=== PATIENT | female | born 1985 | race Caucasian/White ===

== ENCOUNTER 2017-02-12 10:35 | Day surgery (SDC) | payer MEDICAID, SELFPAY ==
[2017-02-12 11:41] VITALS: BMI 44.7
--- NOTE | 2017-02-12 13:52 | PRG ---
DATE OF SERVICE: 02/12/2017 PRIMARY OPERATIONS TECH: Clinic. CHIEF COMPLAINT: Nonreassuring surveillance at the outside facility. HISTORY OF PRESENT ILLNESS: The patient is a 32-year-old female with with an intrauterine pre gnancy at 37 weeks and 3 days who was sent to Labor and Delivery ER for monitoring and evaluation af ter having a nonreactive NST and nonreassuring BPP. The patient's medical history is significant fo r oligohydramnios and LGA baby. Patient has history of pregestational diabetes, but is diet control led, most recent A1c was 5.6. The patient denies any vaginal bleeding, leakage of fluid, uterine co ntractions, any recent illness, fever, fall. 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 She has a positive PPD with nega tive chest x-ray and no symptoms. ALLERGIES: PENICILLIN. MEDICATIONS: Aspirin. OBSTETRIC LABORATORY DATA: She is GBS positive. RPR nonreactive, HIV nonreactive, hepatitis B [place] antigen nonreactive. She is rubella immune, blood type unavailable. OBSTETRIC HISTORY: This is measuring at the 99th percentile, most recent GALILEA 6.6. REVIEW OF SYSTEMS: Per HPI. PHYSICAL EXAMINATION: VITAL SIGNS: Blood pressure 122/76, heart rate of 73, satting 97% on room air, respiration rate 20, temperature 98.2. GENERAL: She appears to be in no acute distress. She is alert and oriented, and cooperative and pl easant to interact with. HEENT: Normocephalic, atraumatic. LUNGS: Clear to auscultation bilaterally. HEART: Regular rate and rhythm. ABDOMEN: Soft, cervical exam is 1, 20 and -4. heart tracing performed for decreased nonreactive NST and nonreassuring BPP at outside facilit y. heart tracing at baseline in the 140s with moderate long-term variability, positive 15 x 1 5 accelerations, no decelerations. She has irritability on the tocometer for contractions. BPP was performed and was 8/8 with an GALILEA of 10.3. ASSESSMENT AND PLAN: The patient is a 32-year-old G2, P1 female with an intrauterine at 3 7 weeks and 0 days, pregestational diabetes, diet controlled. She has a transient history of decrea sed amniotic fluid index, but is within normal limits. Her BPP here is reassuring at 8 out of 8 and has a reactive non-stress test. Reassurance has been given to the patient. She is GBS positive an d is scheduled to follow up with her primary OB next Thursday.
--- NOTE | 2017-02-12 15:44 | ULT ---
BIOPHYSICAL PROFILE 02/12/17 HISTORY: Nonreassuring biophysical profile at outside facility. Oligohydramnios. FINDINGS: there is a single intrauterine gestation in cephalic presentation. Cardiac doppler demonstrates feta l heart tones with a heart rate of 144 beats per minute. The placenta is located anteriorly w ithout findings to suggest placenta previa. Subjectively, there does appear to be decrease in amniot ic fluid volume, but there is a normal amniotic fluid index of 10.3 cm. The cervix is difficult to evaluate due to shadowing in this region. Cervical length measures approx imately 3.9 cm based on transabdominal imaging. This study was not performed for evaluation of the f etal anatomical structures. However, there is a hypoechoic area seen within the placenta which may r epresent either a area of fibrin deposition or venous son. No flow is seen in this region. No retro placental hemorrhage is appreciated. A score of 2 is obtained each for tone, breathing, movements and amniotic fl uid volume. IMPRESSION: 1. Single intrauterine gestation in cephalic presentation with heart tones documented. 2. Amniotic fluid index is 10.3 cm. 3. A total biophysical profile score of 8 out 8 is obtained. POS: [facility]
== END 2017-02-12 13:08 | disposition home or self-care (01) ==
LOC: L&D/OP 10:35
PROVIDERS: ATTEND Obstetrics & Gynecology
DX: O41.03X0 Oligohydramnios, third trimester, not applicable or unspecified (principal); O24.410 Gestational diabetes mellitus in pregnancy, diet controlled; O99.820 Streptococcus B carrier state complicating pregnancy; Z88.0 Allergy status to penicillin; Z79.82 Long term (current) use of aspirin; Z79.899 Other long term (current) drug therapy; Z3A.37 37 weeks gestation of pregnancy
CPT/HCPCS: 59025; 76819

== ENCOUNTER 2017-02-24 18:14 | Day surgery (SDC) | payer OTHER ==
[2017-02-24 19:33] VITALS: BMI 44.7
[2017-02-25] MEDS ORDERED: FLU VACC QS2017-18 36 mo. & older 0.5 ML SYRINGE IM ONE (09:00)
== END 2017-02-24 21:05 | disposition home or self-care (01) ==
LOC: L&D/OP 18:14
PROVIDERS: ATTEND Obstetrics & Gynecology
DX: O36.8130 Decreased fetal movements, third trimester, not applicable or unspecified (principal); Z88.0 Allergy status to penicillin; Z79.82 Long term (current) use of aspirin; Z79.899 Other long term (current) drug therapy; Z3A.38 38 weeks gestation of pregnancy

== ENCOUNTER 2017-02-25 17:02 | Inpatient (IN) | payer MEDICAID, OTHER, SELFPAY ==
[2017-02-25 21:24] VITALS: BMI 44.7
[2017-02-25] MEDS: Lactated Ringer's 1,000 ML IV SCH (22:00)
[2017-02-25] MEDS ORDERED: Lidocaine 1% (PF) 30 ML VIAL SC PRN (22:17)
[2017-02-25] MEDS ORDERED: Ondansetron HCl/PF 4 MG/2 ML Vial IVP PRN (22:17)
[2017-02-25] MEDS ORDERED: Promethazine HCl 25 MG/ML VIAL IM PRN (22:17)
[2017-02-25] MEDS ORDERED: Acetaminophen 500 MG TAB PO PRN (22:17)
[2017-02-25 22:30] LABS: Mean Platelet Volume 8.4 fL (7.4-10.4); Red Blood Cell (RBC) Count 4.35 mill/uL (4.20-5.40); White Blood Cell (WBC) Count 8.8 thou/uL (4.8-10.8)
[2017-02-25] MEDS ORDERED: Misoprostol 100 MCG TAB VAG SCH (23:30)
[2017-02-26] MEDS: Vancomycin HCl 1 GM in Premix Bag 1 BAG IVPB SCH ×2 (00:29→12:21)
[2017-02-26] MEDS ORDERED: Fentanyl 4 mcg/Marc 0.1% Cadd 100 ML ONE (03:22)
--- NOTE | 2017-02-26 03:22 | PDOC.LDPN ---
Labor & Delivery Progress Note - Subjective Subjective: painful contractions - Objective Vital signs reviewed and normal: yes General: breathing through contractions Uterine fundus: palpable contractions SVE: @ 0315 by Nurse Salome Dilation: 3 Effacement: 50% Station: -2 FHT: category 1 (difficult to keep the baby on the monitor well due to maternal habitus), variability present (mod) [place] contractions every: not picking up very well with toco. - Assessment (1) Current Visit: Yes Status: Acute QualifierTitle: Weeks of gestation: 39 weeks Qualified Code(s): Z3A.39 - 39 weeks gestation of Comment: @ 39.0 WGA here for IOL -Cytotec -LR @ 125 Currently having painful ctx that are difficult to pickling tank operator on the monitor due to body habitus. -Is requesting epidural GBS Positive, penicillin allergic -Vancomycin Pregestational Diabetes -Accuchecks q2h Plan: continue plan of care <Luana Lunsford - Last Filed: 02/26/17 03:54> -: Discussed with resident. PreE labs. <Hong Duong - Last Filed: 02/26/17 06:43>
[2017-02-26] MEDS: Lactated Ringer's 1,000 ML IV SCH ×3 (04:05→11:22)
[2017-02-26] MEDS ORDERED: Promethazine HCl 25 MG/ML VIAL IM PRN ×2 (04:06→12:23)
[2017-02-26] MEDS ORDERED: Ondansetron HCl/PF 4 MG/2 ML Vial IVP PRN ×3 (04:06→12:24)
[2017-02-26] MEDS ORDERED: Lactated Ringer's 500 ML IV PRN (04:06)
[2017-02-26] MEDS ORDERED: diphenhydrAMINE 50 MG/ML VIAL IVP PRN ×2 (04:06→12:23)
[2017-02-26] MEDS ORDERED: Acetaminophen 325 MG TAB PO PRN (04:06)
[2017-02-26] MEDS ORDERED: Eucerin (Mineral Oil/Petrolatum,White) 30 gm Jar TOP PRN ×2 (04:06→12:23)
[2017-02-26] MEDS ORDERED: ePHEDrine/0.9% NaCl/PF SYRINGE 50 mg/10 ml SLOW IVP PRN (04:06)
[2017-02-26] MEDS ORDERED: Naloxone HCl 0.4 mg/ml Vial IVP PRN ×4 (04:06→12:23)
[2017-02-26] MEDS ORDERED: Communication Order-Pharmacy FS SCH ×2 (04:15→12:30)
[2017-02-26] MEDS ORDERED: Fentanyl 4mcg/Marcaine 0.1% Cassette 100 ML EPIDURAL SCH (04:15)
[2017-02-26] MEDS ORDERED: Calcium Gluc 4.6 MEQ/10 ML (100 MG/ML) SLOW IVP PRN (05:23)
[2017-02-26] MEDS ORDERED: Magnesium Sulfate 20 GM/WATER 500 ML BAG IVPB SCH (05:30)
[2017-02-26 05:40] LABS: #Basophils 0.1 thou/uL (0.0-0.2); #Eosinphils 0.1 thou/uL (0.0-0.7); #Lymphocytes 3.4 thou/uL (1.20-3.40); #Monocytes 0.6 thou/uL (0.11-0.59); #Neutrophils 5.8 thou/uL (1.40-6.50); %Basophils 0.9 % (0.0-1.0); %Eosinophils 0.7 % (0.0-10.0); %Lymphocytes 34.3 % (21.0-51.0); %Monocytes 5.6 % (0.0-10.0); Hematocrit 41.3 % (36.0-47.0); Mean Platelet Volume 7.8 fL (7.4-10.4); Red Blood Cell (RBC) Count 4.69 mill/uL (4.20-5.40)
[2017-02-26 05:55] LABS: ALT (SGPT) 61 U/L (8-55); AST (SGOT) 34 U/L (5-34); Alkaline Phosphatase 131 U/L (40-150); Anion Gap 15 mmol/L (10-20); BUN (Urea Nitrogen) 15 mg/dL (7.0-18.7); Bilirubin, Total 0.3 mg/dL (0.2-1.2); Calc. Creatinine Clearance 215 mL/min (70-130); Calcium 9.3 mg/dL (7.8-10.44); Carbon Dioxide 18 mmol/L (22-29); Chloride 108 mmol/L (98-107); Estimated GFR-MDRD Greater than 90; Globulin 3.6 g/dL (2.4-3.5)
--- NOTE | 2017-02-26 05:56 | PDOC.LDHP ---
Labor and Delivery H&P Chief complaint: scheduled induction HPI: @ 39w0d by 9w0d sono here for scheduled induction. Macrosomic fetus by recent sono, EFW 3916 g. complicated by class F (24h 390 mg in 3L)pregestational DM, with all sugars well controlled. Started the on metformin but d/c'd after marked improvement in sugars. OB hx: ETVD c/b SGA (although 6 lb 8 oz), chorio PMH: DM, latent TB by quantgold with neg cxr, mild transaminitis that resolved but patient could not afford ultrasound PSH: negative FH: DM ALL: PCN, hives/urticaria Meds: PNV, ASA SH: denies BREONNA Current gestational age (weeks): 39 Due date: 03/05/17 Dating criteria: first trimester ultrasound Grav: 2 Para: 1 Current complications: pregestational diabetes Abnormal US findings: Yes (macrosomia) Current medications: pre-jojo vitamins, other (asa) Previous surgical history: none Allergies/Adverse Reactions: Allergies Allergy/AdvReac Type Severity Reaction Status Date / Time Penicillins Allergy Severe Hives Verified 02/12/17 11:41 Social history: none - Physical Exam Vital signs reviewed and normal: yes Abnormal vital signs: Intermittently elevated pressures General: NAD Heart: RRR Lungs: CTAB Abdomen: gravid Extremeties: trace edema FHT: category 1 - Vaginal Exam cm dilated: 8 Effacement: 100% Station: -1 - OB Labs Blood type: O RH: positive Antibody Screen: negative HIV: negative RPR: negative HEPSAg: negative GBS: positive Rubella: immune - Assessment L&D Assessment: elective induction at term - Plan Plan: labor augmentation if indicated -: A/P: @ 39w0d by 9w0d sono with Obesity Pregestational diabetes, well controlled, class F by chart with 24h 390 mg GBS+, clinda Sn but no lab concerning EES sensitivity Elevated blood pressures 1. Currently active labor, cat 2, mod robel, + accels, variables 2. Vanc 1g q12 in light of above 3. Elevated blood pressures. With correct cuff and positioning, between contractions, 142/70. No severe symptoms, clonus, or increased DTRs. Will send preE labs and escalate with Mg/antihypertensive with appropriate proctoring if a diagnosis of preeclampsia with severe features is made. 4. If persistent variables will consider IUPC with AI. Andrews Duong MD
--- NOTE | 2017-02-26 05:58 | PDOC.LDPN ---
Labor & Delivery Progress Note - Subjective Subjective: painful contractions, loss of fluid - Objective Abnormal vital signs: Multiple severe range BP's, however in between ctx they are 140s/80s General: breathing through contractions SVE: @ 0545 Dilation: 8-9 Effacement: 100% Station: -1 FHT: category 1, variable decelerations, variability present [place] contractions every: difficult to pickling drum operator on monitor Procedures: scalp electrode placement FSE placed: yes Resuscitative measures: maternal oxygen, maternal position change - Assessment (1) Current Visit: Yes Status: Acute QualifierTitle: Weeks of gestation: 39 weeks Qualified Code(s): Z3A.39 - 39 weeks gestation of Comment: @ 39.0 WGA here for IOL -Cytotec -LR @ 125 Currently having painful ctx that are difficult to pickling drum operator on the monitor due to body habitus. Received an epidural Started having severe range BP's that were during her ctx, but with BP's in 140' s/80's between ctx -Will draw pre-eclampsia labs, will monitor BP closely. Low threshold to start Mag Placed scalp electrode to monitor more closely. GBS Positive, penicillin allergic -Vancomycin Pregestational Diabetes -Accuchecks q2h Plan: continue plan of care <Luana Lunsford - Last Filed: 02/26/17 05:57> Attending Addendum - Attending Addendum I personally evaluated the patient and discussed the management with Dr. Lunsford. I agree with the History, Examination, Assessment and Plan documented above with any addition or exceptions noted below. ALT elevated, not 2x. BP's all non-severe with appropriate cuff. Continue current management. <Hong Duong - Last Filed: 02/26/17 06:44>
[2017-02-26] MEDS: Misoprostol 100 MCG TAB VAG SCH ×4 (06:27→19:16)
--- NOTE | 2017-02-26 07:24 | PDOC.LDPN ---
Labor & Delivery Progress Note - Subjective Subjective: painful contractions - Objective Vital signs reviewed and normal: yes Abnormal vital signs: few elevated BPs only with arm mvmt during ctx, bps 140s btw ctx General: breathing through contractions Uterine fundus: non tender SVE: 9/90/0 FHT: category 2, variable decelerations [place] contractions every: 2 min AROM: bloody fluid FSE placed: yes Resuscitative measures: maternal oxygen, maternal IV fluids, maternal position change - Assessment (1) Diabetes type 2, controlled Code(s): E11.9 - TYPE 2 DIABETES MELLITUS WITHOUT COMPLICATIONS Current Visit : Yes Status: Acute Qualifiers: Diabetes mellitus complication status: with kidney complications Diabetes mellitus complication detail: with nephropathy Diabetes mellitus retirement insulin use: without carpet sewer use Qualified Code(s): E11.21 - Type 2 diabetes mellitus with diabetic nephropathy (2) Proteinuria affecting Code(s): O12.10 - GESTATIONAL PROTEINURIA, UNSPECIFIED TRIMESTER Current Visit : Yes Status: Acute Qualifiers: Trimester: unspecified trimester Qualified Code(s): O12.10 - Gestational proteinuria, unspecified trimester (3) GBS carrier Code(s): Z22.330 - CARRIER OF GROUP B STREPTOCOCCUS Current Visit: Yes Status: Acute Plan: continue plan of care -: 1) Term IUP in labor- Currently having painful ctx-- anesthesia called to replace epidural at this time. 2) severe range BP's during ctx, but in between ctx 140-150/80s. pending replacement of epidural at will re-evaluate for Mag. Pr:Cr = 0.45, but normal CBC & CMP and pt with baseline proteinuria (pre-existing DM2) 3) GBS Positive-PCN allergic, s/p Vanc x 1- dosed q12hr. 4) Pregestational Diabetes- accuchecks 68-104, cont accuchecks q2h. last EFW 4030gm @ >97%ile- prepared for potential complications including shoulder dystocia.
[2017-02-26] MEDS ORDERED: Fentanyl 100 MCG/2 ML VIAL ONE (07:31)
--- NOTE | 2017-02-26 10:09 | PDOC.LDPN ---
Labor & Delivery Progress Note - Subjective Subjective: comfortable - Objective Abnormal vital signs: 144/84, no further severe range blood pressures General: NAD Uterine fundus: palpable contractions SVE: 9.5/100/0 FHT: category 2 (tachycardic with minimal variability and late decelerations, improving with positional change) [place] contractions every: 3 min Resuscitative measures: maternal IV fluids, maternal position change -: Non-reassuring heart tones with concern that she is not approaching delivery as soon as desired. Discussed case with patient that given NRFHT, if she does not become complete and deliver soon, we need to consider intervention with a primary Caesarean. Patient understands. Will give 20-30 more minutes and if cervix is not complete or heart tones resolved, will proceed to section. Nursing staff and Adv OB notified.
[2017-02-26] MEDS ORDERED: Clindamycin/D5W 900 mg/50 ml Premix Bag ONE (11:07)
[2017-02-26] MEDS ORDERED: Bicitra 30 ML UDCUP ONE (11:08)
--- NOTE | 2017-02-26 11:13 | PDOC.LDPN ---
Labor & Delivery Progress Note - Subjective Subjective: comfortable - Objective Abnormal vital signs: continues to have mildly elevated blood pressures but no severe features General: NAD Uterine fundus: palpable contractions SVE: 9/100/0 FHT: category 2 (baseline 180s, minimal variability, with occasional late decelerations) [place] contractions every: 3 minutes Resuscitative measures: maternal oxygen, maternal IV fluids, maternal position change Plan: other -: Patient with category 2 strip with tachycardia, minimal variability, and occasional late decelerations. An attempt was made to push past her cervix, which led to deep variables for the fetus and worsening swelling of the cervix. The attempt was abandoned, and after discussion with the patient a primary C Section was called for non-reassuring heart tones in the setting of delayed stage 1 in a diabetic patient with a macrosomic fetus. Anesthesia was called for an urgent C Section and will arrive at noon. Patient is prepared and OR is open. Patient has been consented by myself. We will proceed with C Section as soon as anesthesia arrives. If situation worsens will call an emergent C Section.
[2017-02-26] MEDS: Clindamycin/D5W 900 mg/50 ml Premix Bag ONE ×2 (11:15→17:52)
[2017-02-26] MEDS ORDERED: Clindamycin/D5W 900 MG in Premix Bag 1 BAG IVPB SCH (11:30)
[2017-02-26] MEDS ORDERED: Bicitra 30 ML UDCUP PO SCH (11:30)
[2017-02-26] MEDS ORDERED: Promethazine HCl 25 MG SUPP PR PRN (12:23)
[2017-02-26] MEDS ORDERED: Naloxone HCl 0.4 mg/ml Vial IV PRN (12:23)
[2017-02-26] MEDS ORDERED: HYDROmorphone 2 MG/ML VIAL SLOW IVP PRN (12:24)
[2017-02-26] MEDS ORDERED: Meperidine HCl/PF 25 MG/ML VIAL SLOW IVP PRN (12:24)
[2017-02-26] MEDS ORDERED: Ketorolac Tromethamine 30 MG/ML VIAL IVP SCH (12:30)
[2017-02-26] MEDS ORDERED: Oxytocin 10 UNITS/ML VIAL ONE (12:31)
[2017-02-26] MEDS ORDERED: Morphine PF 1 MG/ML SYR ONE (12:31)
[2017-02-26] MEDS ORDERED: Carboprost 250 MCG/ML AMP ONE (13:11)
[2017-02-26] MEDS ORDERED: Ketorolac Tromethamine 30 MG/ML VIAL ONE (16:12)
--- NOTE | 2017-02-26 16:36 | PDOC.OPDEL ---
OB Operative/Delivery Note Delivery Dr/Surgeon: Bruce Alas DO (pgy3), Kathy Gordon DO (attending) Assist: Deanna Goodrich DO (pgy1), Edie Hernandez MD (intraoperative consult) Pre-Delivery Diagnosis: arrest of dilation, non-reassuring tracing Procedure/Post Delivery Dx: primary low transverse CS Weeks gestation: 39 Anesthesia: epidural - Findings A Sex: female Weight: 3.997 kg - 1 min: 7 - 5 min: 8 - Additional Findings/Plan Placenta delivered: manual removal (with fundal massage) findings: low transverse hysterotomy with extension (cervical extension on right), normal uterus Estimated blood loss: 800ml Post delivery plan: routine recovery Operative Note - Operative Note Operative Note: Procedure: Primary low transverse caesarean section Preoperative Diagnosis: 1) Term intrauterine 2) Arrest of descent 3) Nonreassuring heart tones 4) Pregestational diabetes, diet- controlled 5) GBS positive status-post treatment with Vancomycin 6) Latent Tuberculosis Postoperative Diagnosis: 1) Term intrauterine 2) Arrest of descent 3) Nonreassuring heart tones 4) Pregestational diabetes, diet- controlled 5) GBS positive status-post treatment with Vancomycin 6) Latent Tuberculosis 7) Hysterotomy extension into right cervix 8) Asynclitic presentation Anesthesia: epidural bolused for spinal Indications: The patient is a 32 year old female at 38.6 weeks gestation who presented to L&D for induction of labor for pre-gestational diabetes and suspected macrosomia with last EFW > 97%ile. Pt progressed to 9/90/0 but after 5 hours of labor was unable to descend. Additionally, heart tones noted to be persistent category II with recurrent late decelerations and tachycardia despite resuscitative measures. Discussed risks, benefits, and alternatives and patient agreed on section. Procedure in Detail: After risks, benefits, and alternatives were explained to the patient, she gave informed consent. Pre-operative antibiotics included Cefazolin 2 gram IV. The patient was taken to the operating room and epidural was bolused. She was placed in the supine position with a left tilt and prepped and draped in usual sterile fashion. A Pfannenstiel incision was made with a scalpel and carried down to the level of the fascia which was sharply nicked. The fascial cut was extended bilaterally with Rojas sissors. The inferior and superior edges of the cut fascial edges were elevated with Marv clamps and the underlying rectus muscles were sharply and bluntly dissected free. The recti were divided digitally and retracted manually. The peritoneum was entered bluntly and retracted manually. Bladder was noted to be full and distended despite ramirez in place. Intraoperatively, the bladder was flushed with sterile saline and a few blood clots were broken free, however bladder would still not drain. Skin incision was extended and bilateral rectus muscles were extended with bandage scissors to create more room. Wet lap and bladder blade was placed. A low transverse score was made with the scalpel and the uterus was entered in the midline bluntly and the hysterotomy was extended manually. Clear fluid was seen. The infant was noted to be vertex and asynclitic and was delivered by fundal pressure. Mouth and nares were bulb suctioned. Cord clamped and cut and grossly normal female infant was handed to waiting nurse. Cord blood was obtained. Placenta was extracted with fundal massage and was found to be intact with 3 vessel cord and discarded. The uterus was externalized and the endometrium was curetted with a dry lap. The bladder was protected with a wet lap and there were noted to be bilateral extensions of the hysterotomy inferiorly, to the level of the cervix on the right. Intraoperative consult was called for the laborist, Dr. Hernandez, who assisted with the repair of the hysterotomy and extensions. Initial bleeders along the inferior margin of the hysterotomy were repaired with 2-0 chromic figure-of- eight sutures. The extensions and hysterotomy were then closed with figures-of- eight and running-locking sutures with 0-monocryl suture. Interrupted imbricating sutures were performed with 0-monocryl along areas requiring further hemostasis. Following this, Floseal was applied to the hysterotomy for furhter hemostasis. The bladder was back-filled with methylene blue to ensure no bladder involvement and no leakage was noted after the bladder was filled to 300ml. The uterus was internalized and the hysterotomy was again noted to be hemostatic. The abdomen was irrigated with saline and suctioned free of clots. The fascia was closed with a running non-locking 0-Vicryl suture. The subcutaneous tissue was irrigated and small bleeders were bovie cauterized. The subcutaneous tissue was then re-approximated with simple interrupted 3-0 plain gut sutures. The skin was approximated with betsey and a Provena wound vac dressing was placed. All counts were correct. The patient tolerated the procedure well and was taken to the recovery room in stable condition. Estimated Blood Loss: 800 ml Complications: hysterotomy extensions, no bladder involvement Specimens: Cord blood sent to lab for blood type Findings: Grossly normal female infant with apgars of 7 & 9 for color & tone. Grossly normal placenta with 3 vessel cord discarded. Drains: Ramirez to gravity draining methylene blue-tinged urine. The attending, Dr. Lupe Gordon, was present throughout the entire case.
[2017-02-26] MEDS: LR / Pitocin 40 units/1000 ml 1,000 ML IV PRN ×2 (16:39→22:58)
[2017-02-26] MEDS ORDERED: ePHEDrine/0.9% NaCl/PF SYRINGE 50 mg/10 ml ONE (20:52)
[2017-02-26] MEDS ORDERED: Bupivacaine/Epinephrine 0.25% 30 ML VIAL ONE (20:52)
[2017-02-26] MEDS ORDERED: Bupivacaine HCl 0.5%/Epinephrine 1:200,000/PF 30 ml Vial ONE (20:52)
[2017-02-26] MEDS ORDERED: Terbutaline Sulfate 1 MG/ML VIAL ONE (20:52)
[2017-02-26] MEDS ORDERED: Bupivacaine 0.25% HCL 30 ML VIAL ONE (20:52)
[2017-02-26] MEDS: Ketorolac Tromethamine 30 MG/ML VIAL IVP PRN (22:56)
[2017-02-27] MEDS: Ketorolac Tromethamine 30 MG/ML VIAL IVP PRN (06:01)
[2017-02-27] MEDS ORDERED: diphenhydrAMINE 25 MG CAP PO PRN (06:13)
[2017-02-27] MEDS: Lactated Ringer's 1,000 ML IV SCH ×3 (07:52→23:14)
--- NOTE | 2017-02-27 07:55 | OP ---
DATE OF ENCOUNTER: 02/26/2017 CONSULTING PHYSICIAN: Dr. Gordon, Family Medicine. INDICATIONS FOR PROCEDURE: The patient is a 32-year-old female who was taken to the operating room f or primary section due to arrest of labor, arrest of descent. I was called intraoperatively. After infant was delivered, Dr. Gordon noted an extension of the hysterotomy down towards the cervix bilat erally whose apices were extremity close to the bladder. Upon scrubbing and gowning, I came to the s terile field and noted the uterus exteriorized from the abdomen with a large collapsed bladder also e xteriorized and the hysterotomy with a 5-6 clamps for hemostasis with still some bleeding evident. U dilan examination of the hysterotomy and the anatomy, we removed clamps from the cervix and tied off th e bleeding with a 2-0 chromic in [id number]. Once this was noted to be hemostatic, attention wa s placed to the remaining clamps on the hysterotomy itself superiorly and inferiorly. Attention was placed on the left apice. Bladder was bluntly dissected away from the lower edge of the hysterotomy. The bladder was noted to be very edematous, but the blunt dissection was hemostatic with a #1 Monoc ryl. The patient's left edge of the hysterotomy was reapproximated at a point distal from the apex a nd tied and then with sequential running locked stitches running towards the apice, the apice was the n brought into the field and was made hemostatic. With this performed, the hysterotomy was then clos ed with a running locked stitch across the majority of the remaining hysterotomy. Once we were close r to about 2/3 to the other apice, we stopped and then evaluated the other side for closure. Once ag ain clamps were removed and a #1 Monocryl was used for reapproximate the hysterotomy close to the ape x and then with a series of running locked stitches, the apex was brought into the field of view and made hemostatic. The stitch was then turned back on itself and carried across the rest of the hyster otomy until there was complete closure. The stitches were then tied together and the hysterotomy was evaluated. There was still noted some bleeding at the hysterotomy site and a series of imbricating [id number] stitches were then used at that bleeding edges for hemostasis. Once this was complet ed, the bladder was reevaluated and noted to be anatomically separate from the surgical site itself. For extra care, the bladder was backfilled with methylene blue and with approximately 300 mL. The b ladder did not show any signs of loss of integrity and defect. Once this was completed, the bladder was drained. The uterus was then returned back to the abdomen and the field was irrigated and the hy sterotomy was reevaluated and noted to be hemostatic. At this point in time, the procedure was turne d back to Dr. Gordon for completion. My portion of the procedure lasted approximately 20-30 minutes .
--- NOTE | 2017-02-27 09:29 | PDOC.PP ---
Post Progress Note Post Day #: 1 Subjective: Patient is resting comfortably. She reports she has not got out of bed yet. Still has ramirez. Has not passed gas. Otherwise reports pain is tolerable. Wishes to use breast pump to stimulate milk production but has not been given a pump yet. Nurse reports she will get her one. PO intake tolerated: yes Flatus: no Ambulation: no Vital Signs (12 hours) Temp Pulse Resp BP 02/27/17 04:00 98.7 F 82 20 110/60 02/27/17 00:15 99.0 F 84 20 100/53 L Weight Weight 107.501 kg - Physical Examination General: NAD Cardiovascular: no m/r/g, RRR Respiratory: clear to auscultation bilaterally Abdominal: lochia, no distention, appropriately TTP Fundus firm & at: difficult to evaluate due to body habitus Extremities: negative homans (B) Deviation from normal: Incision covered with wound vac Neurological: no gross focal deficits Psychiatric: A&Ox3 Result Diagrams: 02/26/17 05:28 02/26/17 05:28 Additional Labs: Post Labs Blood Type O POSITIVE 02/25/17 21:58 Hep Bs Antigen Non-Reactive S/CO (NonReactive) 02/25/17 21:58 - Assessment/Plan 32 yo -->2 delivered a TAGA F at 39.0 via LTCS due to non reassuring heart tones and failure to descend. - Pain well controlled, will switch to PO [place] today - Will d/c ramirez today and encourage ambulation - breast pump for milk supply - Will obtain ACHS accuchecks with hx of diet controlled GDM and hx of T2DM. - Likely d/c tomorrow. <Lisette Goodrich - Last Filed: 02/27/17 09:26> Vital Signs (12 hours) Temp Pulse Resp BP 02/27/17 04:00 98.7 F 82 20 110/60 02/27/17 00:15 99.0 F 84 20 100/53 L Weight Weight 107.501 kg Result Diagrams: 02/27/17 10:10 02/26/17 05:28 Additional Labs: Post Labs Blood Type O POSITIVE 02/25/17 21:58 Hep Bs Antigen Non-Reactive S/CO (NonReactive) 02/25/17 21:58 <Lupe Gordon - Last Filed: 02/27/17 12:10> Attending Addendum - Attending Addendum I personally evaluated the patient and discussed the management with Dr. Goodrich on 02/27/17. I agree with the History, Examination, Assessment and Plan documented above with any addition or exceptions noted below. Doing well. Pain well controlled. qa consultant and begin pumping VAHID. Remove Ramirez and start ambulating. <Lupe Gordon - Last Filed: 02/27/17 12:10>
[2017-02-27] MEDS ORDERED: Dextrose 5% in Water 1,000 ML IV PRN (09:38)
[2017-02-27] MEDS ORDERED: Dextrose 50% Abboject 50 ML SYRINGE SLOW IVP PRN (09:38)
[2017-02-27] MEDS ORDERED: HumaLOG 300 UNITS/3 ML VIAL SC PRN ×2 (09:38)
[2017-02-27 10:42] LABS: Hematocrit 27.5 % (36.0-47.0)
[2017-02-27] MEDS: HYDROcodone/Acetaminophen 10/325 mg Tablet PO PRN ×3 (10:48→21:13)
[2017-02-27] MEDS ORDERED: Ibuprofen 800 MG TAB PO SCH (16:30)
[2017-02-27] MEDS: Simethicone Chewable 80 MG TAB PO PRN (21:12)
[2017-02-27] MEDS: Ibuprofen 800 MG TAB PO SCH (21:12)
[2017-02-28] MEDS: HYDROcodone/Acetaminophen 10/325 mg Tablet PO PRN ×4 (04:29→20:37)
[2017-02-28] MEDS: Simethicone Chewable 80 MG TAB PO PRN (04:30)
[2017-02-28] MEDS: Ibuprofen 800 MG TAB PO SCH ×3 (04:31→20:37)
[2017-02-28 05:04] LABS: Hematocrit 26.6 % (36.0-47.0)
--- NOTE | 2017-02-28 06:12 | PDOC.PP ---
Post Progress Note Post Day #: 2 Subjective: Patient doing much better today but still reports 7/10 pain. Is up walking in the halls. Lochia wnl. Urinating well. PO intake tolerated: yes Flatus: yes Ambulation: yes Vital Signs (12 hours) Temp Pulse Resp BP Pulse Ox 02/28/17 04:20 97.8 F 96 20 121/71 02/28/17 01:00 98.2 F 83 20 124/66 02/27/17 20:45 98.7 F 110 H 20 121/62 95 Weight Weight 107.501 kg - Physical Examination General: NAD Cardiovascular: no m/r/g, RRR Respiratory: clear to auscultation bilaterally Abdominal: + bowel sounds, lochia, no distention, appropriately TTP Extremities: negative homans (B) Skin: CS incision dry & intact Deviation from normal: covered by wound vac type dressing Neurological: no gross focal deficits Psychiatric: A&Ox3, normal affect Result Diagrams: 02/28/17 04:46 02/26/17 05:28 Additional Labs: Post Labs Blood Type O POSITIVE 02/25/17 21:58 Hep Bs Antigen Non-Reactive S/CO (NonReactive) 02/25/17 21:58 (1) delivery delivered Code(s): O82 - ENCOUNTER FOR DELIVERY WITHOUT INDICATION Status: Acute Comment: Recovery improving. H/H still low, will recheck tomorrow morning. Continue ambulation and schedule Ibuprofen q8h. Likely d/c home tomorrow. (2) Diabetes type 2, controlled Code(s): E11.9 - TYPE 2 DIABETES MELLITUS WITHOUT COMPLICATIONS Status: Acute QualifierTitle: Diabetes mellitus complication status: with kidney complications Diabetes mellitus complication detail: with nephropathy Diabetes mellitus buttermaker insulin use: without buttermaker use Qualified Code( s): E11.21 - Type 2 diabetes mellitus with diabetic nephropathy Comment: WOO accucheckkathleen (3) GBS carrier Code(s): Z22.330 - CARRIER OF GROUP B STREPTOCOCCUS Status: Acute Comment: Treated with Vanc during delivery due to PCN allergy. - Assessment/Plan Treated with Vancomycin intrapartum due to PCN allergy. <Lisette Goodrich - Last Filed: 02/28/17 10:40> Vital Signs (12 hours) Temp Pulse Resp BP Pulse Ox 02/28/17 12:13 97.4 F L 74 18 120/61 96 02/28/17 11:54 98.4 F 96 20 02/28/17 07:55 98.4 F 95 16 118/69 02/28/17 04:20 97.8 F 96 20 121/71 02/28/17 01:00 98.2 F 83 20 124/66 Weight Weight 107.501 kg Result Diagrams: 02/28/17 04:46 02/26/17 05:28 Additional Labs: Post Labs Blood Type O POSITIVE 02/25/17 21:58 Hep Bs Antigen Non-Reactive S/CO (NonReactive) 02/25/17 21:58 <Lupe Gordon - Last Filed: 02/28/17 12:28> Attending Addendum - Attending Addendum I personally evaluated the patient and discussed the management with Dr. Goodrich on 02/28/17. I agree with the History, Examination, Assessment and Plan documented above with any addition or exceptions noted below. Doing well. Wants to shower today. Ambulating well, tolerating PO, passing gas. Discharge home tomorrow. <Lupe Gordon - Last Filed: 02/28/17 12:28>
[2017-02-28] MEDS: Lactated Ringer's 1,000 ML IV SCH ×3 (06:39→22:08)
[2017-02-28] MEDS: Prenatal Vitamin 1 TAB PO SCH (07:54)
[2017-02-28] MEDS: Docusate 100 MG CAP PO SCH (07:54)
[2017-02-28] MEDS: Ferrous Fumarate 324 MG TAB PO SCH (09:38)
[2017-03-01 05:33] LABS: Hematocrit 26.6 % (36.0-47.0)
[2017-03-01] MEDS: HYDROcodone/Acetaminophen 10/325 mg Tablet PO PRN (06:12)
[2017-03-01] MEDS: Ibuprofen 800 MG TAB PO SCH (06:12)
--- NOTE | 2017-03-01 06:15 | PDOC.PP ---
Post Progress Note Post Day #: 3 Subjective: Patient feeling good today, still reports mild pain. Has been up walking around. Has no problems urinating. Passing gas. PO intake tolerated: yes Flatus: yes Ambulation: yes Vital Signs (12 hours) Temp Pulse Resp BP Pulse Ox 02/28/17 20:28 98.0 F 89 20 138/65 100 Weight Weight 107.501 kg - Physical Examination General: NAD Cardiovascular: no m/r/g, RRR Respiratory: clear to auscultation bilaterally Abdominal: + bowel sounds, lochia, no distention, appropriately TTP Extremities: negative homans (B) Deviation from normal: not able to visualize due to pannus, but provena in place Neurological: no gross focal deficits Psychiatric: A&Ox3, normal affect Result Diagrams: 03/01/17 04:46 02/26/17 05:28 Additional Labs: Post Labs Blood Type O POSITIVE 02/25/17 21:58 Hep Bs Antigen Non-Reactive S/CO (NonReactive) 02/25/17 21:58 (1) delivery delivered Code(s): O82 - ENCOUNTER FOR DELIVERY WITHOUT INDICATION Status: Acute Comment: Recovery improving. H/H still low, patient not symptomatic. Continue Iron and PNV. Likely d/c home today. (2) Diabetes type 2, controlled Code(s): E11.9 - TYPE 2 DIABETES MELLITUS WITHOUT COMPLICATIONS Status: Acute QualifierTitle: Diabetes mellitus complication status: with kidney complications Diabetes mellitus complication detail: with nephropathy Diabetes mellitus watermaster insulin use: without fpc use Qualified Code( s): E11.21 - Type 2 diabetes mellitus with diabetic nephropathy Comment: WOO sanchez wnnathaniel (3) GBS carrier Code(s): Z22.330 - CARRIER OF GROUP B STREPTOCOCCUS Status: Acute Comment: Treated with Vanc during delivery due to PCN allergy. <Lisette Goodrich - Last Filed: 03/01/17 11:29> Vital Signs (12 hours) Temp Pulse Resp BP 03/01/17 07:50 97.8 F 64 18 119/57 L Weight Weight 107.501 kg Result Diagrams: 03/01/17 04:46 02/26/17 05:28 Additional Labs: Post Labs Blood Type O POSITIVE 02/25/17 21:58 Hep Bs Antigen Non-Reactive S/CO (NonReactive) 02/25/17 21:58 <Lupe Gordon - Last Filed: 03/01/17 13:02> Attending Addendum - Attending Addendum I personally evaluated the patient and discussed the management with Dr. Goodrich on 03/01/17. I agree with the History, Examination, Assessment and Plan documented above with any addition or exceptions noted below. Doing well. Complained of single episode of dizziness after standing up this morning. Hg 8.9, BP stable, no tachycardia. Glucose at the time 66. Was given juice and dizziness resolved. Has ambulated around today without repeat episodes. Discharge home, follow up later this week for Provena and betsey removal. <Lupe Gordon - Last Filed: 03/01/17 13:02>
[2017-03-01] MEDS: Lactated Ringer's 1,000 ML IV SCH (06:32)
[2017-03-01] MEDS: Prenatal Vitamin 1 TAB PO SCH (08:21)
[2017-03-01] MEDS: Docusate 100 MG CAP PO SCH (08:21)
[2017-03-01 09:03] VITALS: BP 119/57; TEMP 97.8
[2017-03-01] MEDS: Ferrous Fumarate 324 MG TAB PO SCH (09:40)
[2017-03-01] MEDS ORDERED: Ferrous Sulfate 325 MG TAB PO SCH (17:00)
== END 2017-03-01 13:25 | disposition home or self-care (01) | DRG 765 ==
LOC: L&D 20:11 → 3SW 02-26 17:00
PROVIDERS: ADMIT Emergency Medicine; ATTEND Emergency Medicine
PROC: 10D00Z1 Extraction of Products of Conception, Low, Open Approach (ICD-10-PCS; principal; 2017-02-26)
PROC: 0UQC0ZZ Repair Cervix, Open Approach (ICD-10-PCS; 2017-02-26)
PROC: 3E0P7VZ Introduction of Hormone into Female Reproductive, Via Natural or Artificial Opening (ICD-10-PCS; 2017-02-26)
DX: O24.12 Pre-existing type 2 diabetes mellitus, in childbirth (principal); O71.3 Obstetric laceration of cervix; E11.21 Type 2 diabetes mellitus with diabetic nephropathy; Z68.41 Body mass index [BMI] 40.0-44.9, adult; O36.63X0 Maternal care for excessive fetal growth, third trimester, not applicable or unspecified; O16.4 Unspecified maternal hypertension, complicating childbirth; O76 Abnormality in fetal heart rate and rhythm complicating labor and delivery; O64.8XX0 Obstructed labor due to other malposition and malpresentation, not applicable or unspecified; O62.1 Secondary uterine inertia; Z37.0 Single live birth; Z3A.38 38 weeks gestation of pregnancy; O99.824 Streptococcus B carrier state complicating childbirth; Z88.0 Allergy status to penicillin; O99.214 Obesity complicating childbirth; E66.01 Morbid (severe) obesity due to excess calories; O26.893 Other specified pregnancy related conditions, third trimester; R76.11 Nonspecific reaction to tuberculin skin test without active tuberculosis
CPT/HCPCS: 36415; 36416; 80053; 82570; 84156; 85014; 85018; 85025; 85027; 86780; 86850; 86900; 86901; 87340; J0670; J1200; J1885; J2001; J2274; J2310; J2590; J3010; J3105; J3370; J3490; Q9968; S0020

== ENCOUNTER 2017-05-30 03:21 | Emergency (ER) | payer MEDICAID, SELFPAY ==
[2017-05-30 03:59] LABS: Hemoglobin 12.3 g/dL (12.0-16.0); Mean Corpuscular HGB CONC 32.7 g/dL (32.0-36.0); Mean Corpuscular Hemoglobin 24.3 pg (27.0-31.0); Mean Corpuscular Volume 74.5 fl (81.0-99.0); Mean Platelet Volume 7.2 fL (7.4-10.4); Platelet Count 294 thou/uL (130-400); RBC Distribution Width 14.5 % (11.5-14.5); Red Blood Cell (RBC) Count 5.06 mill/uL (4.20-5.40); White Blood Cell (WBC) Count 9.3 thou/uL (4.8-10.8)
[2017-05-30 04:08] LABS: ALT (SGPT) 52 U/L (8-55); AST (SGOT) 44 U/L (5-34); Albumin 3.8 g/dL (3.5-5.0); Alkaline Phosphatase 107 U/L (40-150); Anion Gap 12 mmol/L (10-20); BUN (Urea Nitrogen) 18 mg/dL (7.0-18.7); Bilirubin, Total 0.3 mg/dL (0.2-1.2); Calc. Creatinine Clearance 0 mL/min (70-130); Calcium 9.4 mg/dL (7.8-10.44); Carbon Dioxide 26 mmol/L (22-29); Chloride 105 mmol/L (98-107); Estimated GFR-MDRD 88; Globulin 3.3 g/dL (2.4-3.5); Glucose 117 mg/dL (70-105); Potassium 3.8 mmol/L (3.5-5.1); Protein, Total 7.1 g/dL (6.0-8.3); Sodium 139 mmol/L (136-145)
[2017-05-30 04:16] LABS: Bilirubin Negative (Negative); Blood, Urine Negative (Negative); Clarity CLOUDY (Clear); Glucose, Urine (Dipstick) Negative (Negative); Leukocyte Small (Negative); Nitrite Negative (Negative); Protein, Urine (Dipstick) Negative (Neg-Trace); Specific Gravity, Urine 1.016 (1.002-1.036); pH, Urine 7.5 (5.0-9.0)
[2017-05-30 04:17] LABS: Pregnancy Test - Urine (BHCG) Negative (Negative); Pregu Control Background? CLEAR/WHITE (CLR/WHITE); Pregu Control Bar Appear? YES (CONTROL BAR); Specific Gravity 1.016 (1.002-1.036)
[2017-05-30 04:20] LABS: Bacteria/HPF None Seen HPF (None Seen); Hyaline Casts/LPF 0-3 HYALINE CAST LPF (0-3 Hyaline)
[2017-05-30 04:39] LABS: #Eosinphils 0.3 thou/uL (0.0-0.7); #Lymphocytes 3.7 thou/uL (1.20-3.40); #Monocytes 0.4 thou/uL (0.11-0.59); #Neutrophils 4.9 thou/uL (1.40-6.50); %Basophils 0.4 % (0.0-1.0); %Lymphocytes 40.1 % (21.0-51.0); %Monocytes 3.8 % (0.0-10.0); %Neutrophils 52.7 % (42.0-75.0); RBC Morphology Normal
[2017-05-30] MEDS ORDERED: Ondansetron HCl/PF 4 MG/2 ML Vial ONE (06:48)
--- NOTE | 2017-05-30 07:43 | ULT ---
PRELIMINARY REPORT/[facility]/EMERGENCY AFTER HOURS PROCEDURE: EXAM: US Abdomen Limited, Right Upper Quadrant CLINICAL HISTORY: The patient is a 32 years female; Pain; Other: Upper abd pain, slight bump in lft TECHNIQUE: Real-time ultrasound of the right upper quadrant with image documentation. COMPARISON: No relevant prior studies available. FINDINGS: Liver: Slightly inhomogeneous but with no visualized mass. No intrahepatic bile duct dilation. Gallbladder: Normal in size with a few tiny layering stones. Gallbladder wall is normal in thickness measuring less than 3 mm. No pericholecystic fluid. Sonographic Wray's sign is reportedly negative. Common duct: Unremarkable as visualized measuring less than 5 mm at the liver hilum. The distal commo n bile duct is obscured by bowel gas. Pancreas: Unremarkable as visualized. Tail obscured by bowel gas. Right kidney: 12.2 x 5.6 x 5.0 cm with normal cortical thickness and echogenicity. No hydronephrosis. There are a few subtle echogenic foci within the renal sinus but no confirmed shadowing stones. 10 m m hypoechoic cystic lesion at the midpole is too small to definitively characterize. No obvious solid mass. Other: No free fluid. IMPRESSION: 1. Cholelithiasis without sonographic evidence of cholecystitis or biliary obstruction. 2. Question mild hepatic steatosis. Thank you for allowing us to participate in the care of your patient. Dictated and Authenticated by: Gerard Edwards MD 05/30/2017 7:29 AM Central Time ([place] & [place]) FINAL REPORT SONOGRAM RIGHT UPPER QUADRANT: DATE: 05/30/17. TIME: Performed on emergency basis at 0623 hours. HISTORY: Right upper quadrant pain. FINDINGS: Findings agree with the preliminary report from [facility]. Gallstones are confirmed. No trenton dence of acute biliary obstruction. POS: [facility]
== END 2017-05-30 08:08 | disposition home or self-care (01) ==
LOC: ERS 03:21
DX: K80.20 Calculus of gallbladder without cholecystitis without obstruction (principal); N20.0 Calculus of kidney
CPT/HCPCS: 76705; 80053; 81003; 81015; 81025; 83690; 85025; 93005; 96374; 96375; J2270; J2405

== ENCOUNTER 2017-06-04 15:54 | Inpatient (IN) | payer OTHER, SELFPAY ==
[2017-06-04 16:55] LABS: Bilirubin Negative (Negative); Blood, Urine Negative (Negative); Clarity CLOUDY (Clear); Glucose, Urine (Dipstick) Negative (Negative); Leukocyte Moderate (Negative); Nitrite Negative (Negative); Protein, Urine (Dipstick) Negative (Neg-Trace); Specific Gravity, Urine 1.017 (1.002-1.036); pH, Urine 6.5 (5.0-9.0)
[2017-06-04 16:56] LABS: Pregnancy Test - Urine (BHCG) Negative (Negative); Pregu Control Background? CLEAR/WHITE (CLR/WHITE); Pregu Control Bar Appear? YES (CONTROL BAR); Specific Gravity 1.017 (1.002-1.036)
[2017-06-04 16:57] LABS: #Eosinphils 0.2 thou/uL (0.0-0.7); #Lymphocytes 3.5 thou/uL (1.20-3.40); #Monocytes 0.5 thou/uL (0.11-0.59); #Neutrophils 4.4 thou/uL (1.40-6.50); %Basophils 0.2 % (0.0-1.0); %Eosinophils 2.7 % (0.0-10.0); %Lymphocytes 40.5 % (21.0-51.0); %Neutrophils 50.6 % (42.0-75.0); Hemoglobin 12.2 g/dL (12.0-16.0); Mean Corpuscular HGB CONC 32.3 g/dL (32.0-36.0); Mean Corpuscular Hemoglobin 24.4 pg (27.0-31.0); Mean Corpuscular Volume 75.6 fl (81.0-99.0); Mean Platelet Volume 7.4 fL (7.4-10.4); Platelet Count 323 thou/uL (130-400); RBC Distribution Width 15.5 % (11.5-14.5); Red Blood Cell (RBC) Count 4.98 mill/uL (4.20-5.40); White Blood Cell (WBC) Count 8.7 thou/uL (4.8-10.8)
[2017-06-04 16:57] LABS: Bacteria/HPF Rare-Few HPF (None Seen); Hyaline Casts/LPF 0-3 HYALINE CAST LPF (0-3 Hyaline); Pathc Cast-AUWi Flag 0.13 (0-2.49)
[2017-06-04 17:20] LABS: ALT (SGPT) 125 U/L (8-55); AST (SGOT) 42 U/L (5-34); Albumin 4.1 g/dL (3.5-5.0); Alkaline Phosphatase 134 U/L (40-150); Anion Gap 11 mmol/L (10-20); BUN (Urea Nitrogen) 12 mg/dL (7.0-18.7); Bilirubin, Total 0.3 mg/dL (0.2-1.2); Calc. Creatinine Clearance 0 mL/min (70-130); Calcium 9.1 mg/dL (7.8-10.44); Carbon Dioxide 24 mmol/L (22-29); Chloride 104 mmol/L (98-107); Estimated GFR-MDRD Greater than 90; Globulin 3.6 g/dL (2.4-3.5); Glucose 82 mg/dL (70-105); Lipase 43 U/L (8-78); Potassium 3.9 mmol/L (3.5-5.1); Protein, Total 7.7 g/dL (6.0-8.3); Sodium 135 mmol/L (136-145)
--- NOTE | 2017-06-04 18:10 | ULT ---
RIGHT UPPER QUADRANT ULTRASOUND 06/04/17 COMPARISON: 05/30/17. HISTORY: Right upper quadrant pain. TECHNIQUE: Multiplanar abernathy scale sonographic imaging of the right upper quadrant obtained. FINDINGS: The pancreas is obscured by bowel gas. The hepatic parenchyma is mildly heterogeneous and echogenic, limiting assessment for focal liver les ion. This suggests steatosis. The common bile duct measures approximately 3 mm, within normal limits. Gallbladder wall is upper limits of normal in thickness. No pericholecystic fluid is seen. Foci of in creased echogenicity are noted within the gallbladder lumen, suggesting small stones. Right kidney measures 12.6 cm in craniocaudal dimension and demonstrates no stone or hydronephrosis. Vague hypoechoic areas within mid pole right kidney noted measuring in the 1.9 x 1.2 x 1.5 cm range. This may represent a small cyst but is not optimally assessed on this examination. IMPRESSION: Cholelithiasis. No sonographic evidence of cholecystitis or biliary dilatation. Increased echogenicit y of the hepatic parenchyma suggests steatosis. POS: [facility]
[2017-06-04] MEDS ORDERED: Ondansetron HCl/PF 4 MG/2 ML Vial IVP PRN (20:08)
[2017-06-04] MEDS ORDERED: Ondansetron ODT 4 MG TAB SL PRN (20:08)
[2017-06-04] MEDS ORDERED: Acetaminophen 325 MG TAB PO PRN (20:08)
[2017-06-04] MEDS ORDERED: Fentanyl 100 MCG/2 ML VIAL SLOW IVP PRN (20:09)
[2017-06-05] MEDS: D5 1/2 NS w/20 mEq KCL 1,000 ML IV SCH ×5 (00:07→21:37)
[2017-06-05 00:40] VITALS: BMI 40.3
[2017-06-05] MEDS ORDERED: Ondansetron HCl/PF 4 MG/2 ML Vial IVP PRN ×3 (00:51→12:15)
[2017-06-05] MEDS ORDERED: Ondansetron ODT 4 MG TAB SL PRN (00:52)
[2017-06-05] MEDS ORDERED: Acetaminophen 325 MG TAB PO PRN (00:53)
--- NOTE | 2017-06-05 06:52 | RAD ---
PORTABLE SEMIUPRIGHT FRONTAL CHEST RADIOGRAPH: 06/04/2017 HISTORY: Positive PPD. COMPARISON: None. FINDINGS: The lungs are clear. The heart and mediastinal contour is grossly unremarkable. IMPRESSION: No acute findings. POS: [facility]
[2017-06-05] MEDS ORDERED: Lidocaine 2% w/Epinephrine 1:200K 20 ML VIAL ONE (09:52)
[2017-06-05] MEDS ORDERED: Iothalamate Meglumine 60% 50 ML VIAL FS ONE (09:52)
[2017-06-05] MEDS ORDERED: Bupivacaine 0.25% HCL 30 ML VIAL ONE (09:52)
[2017-06-05] MEDS ORDERED: Levofloxacin 500 mg/D5W 100 ml Premix Bag ONE (10:10)
[2017-06-05] MEDS ORDERED: Fentanyl 100 MCG/2 ML VIAL ONE (10:12)
--- NOTE | 2017-06-05 10:23 | HP ---
CHIEF COMPLAINT: Midepigastric pain. HISTORY OF PRESENT ILLNESS: The patient is a 32-year-old female with a 2-day history of right upper quadrant midepigastric pain, radiating to the back, associated with nausea, no vomiting, no fever or chills. PAST MEDICAL HISTORY: Significant for morbid obesity, history of positive PPD, but she was never donya ated worked up. PAST SURGICAL HISTORY: Umbilical hernia. MEDICATIONS: None. ALLERGIES: PENICILLIN. SOCIAL HISTORY: She is . She does not work. No tobacco, no alcohol. She is from [place]. FAMILY HISTORY: Noncontributory. PHYSICAL EXAMINATION: VITAL SIGNS: Temperature 98, pulse 83, blood pressure 120/73. GENERAL: Morbidly obese female, lying still, in no apparent distress. HEENT: No jaundice. LUNGS: Clear. HEART: Regular rate and rhythm. ABDOMEN: Obese, soft, tender in the midepigastrium and right upper quadrant. EXTREMITIES: Unremarkable. LABORATORY AND X-RAY FINDINGS: White count 8.7, H&H 12 and 37, platelet count 323. Electrolytes are normal. Her AST is elevated at 42, ALT at 125, otherwise unremarkable. Ultrasound showed multiple small stones, thickened gallbladder wall. No ductal dilatation. ASSESSMENT: Acute cholecystitis with elevated liver functions. PLAN: Laparoscopic cholecystectomy with intraoperative cholangiogram. Also, of note, she had a ches t x-ray this admission that was unremarkable.
[2017-06-05] MEDS ORDERED: Albuterol Sulfate HFA (OR ONLY) ONE (10:55)
[2017-06-05] MEDS ORDERED: hydrALAZINE 20 MG/ML VIAL SLOW IVP PRN (11:48)
[2017-06-05] MEDS ORDERED: Mag-Al 1200 mg/1200 mg/30 ML UDCUP PO PRN (11:48)
[2017-06-05] MEDS ORDERED: Calcium Carbonate 500 MG ChewTAB PO PRN (11:48)
[2017-06-05] MEDS ORDERED: HYDROcodone/Acetaminophen 10/325 mg Tablet PO PRN ×2 (11:48)
[2017-06-05] MEDS ORDERED: Dextrose 5% in Water 1,000 ML IV PRN (11:48)
[2017-06-05] MEDS ORDERED: Promethazine HCl 25 MG/ML VIAL IM PRN ×2 (11:48→12:15)
[2017-06-05] MEDS ORDERED: Dextrose 50% Abboject 50 ML SYRINGE SLOW IVP PRN (11:48)
[2017-06-05] MEDS ORDERED: Promethazine HCl 25 MG/ML VIAL ONE (12:04)
[2017-06-05] MEDS: Ketorolac Tromethamine 30 MG/ML VIAL IVP SCH ×3 (12:05→23:43)
[2017-06-05] MEDS ORDERED: Promethazine HCl 25 MG/ML VIAL SLOW IVP PRN (12:15)
--- NOTE | 2017-06-05 13:22 | OP ---
PREOPERATIVE DIAGNOSIS: Cholelithiasis with elevated liver function. SURGEON: Simeon Conklin M.D. PROCEDURE PERFORMED: Laparoscopic cholecystectomy with intraoperative cholangiogram. INDICATIONS: This is a 32-year-old female, who presented with a 24-hour history of right upper quadr ant pain radiating to the back associated with nausea and vomiting. Ultrasound showed cholelithiasis . Her liver tests were mildly elevated. FINDINGS: Negative cholangiogram, very fatty liver. DESCRIPTION OF PROCEDURE: After informed consent was obtained, the patient was taken to the operatin g room, given general endotracheal anesthesia, and placed in the supine position. The abdomen was pr epped and draped in the usual fashion. Local anesthesia infiltrated subcutaneously and deep. A subu mbilical incision was performed, subcu divided sharply. The fascia grasped and two stay sutures of 0 Vicryl placed to either side of midline. Midline incised. Digital palpation revealed no local adhe sions. A blunt 10-12 mm trocar inserted. Pneumoperitoneum was created to a pressure of 15 mmHg. A 0-degree laparoscope inserted under direct vision, three 5 mm ports placed subcostally. The gallblad haylee grasped and advanced superiorly. Peritoneum lysed distally revealed the cystic duct and artery a nd critical view. A clip was placed at the base of the gallbladder. The incision made in the cystic duct. An intraoperative cholangiogram was performed. This showed free flow into the duodenum, no f illing defects. The duct was triply ligated and divided. The artery was ligated and divided. The g allbladder was removed from its fossa utilizing electrocautery, removed from the abdomen through the umbilical port. Hemostasis assured with electrocautery as well as Corie powder. Trocars and retrac tors removed. The fascia closed with interrupted 0 Vicryl suture. The skin closed with interrupted 4-0 Rapide. Dermabond applied. The patient tolerated the procedure well and transferred to recovery in good condition. Sponge and needle count verified correct x2.
[2017-06-05] MEDS ORDERED: PROVENTIL INHALER 6.7 G (200 INHALATIONS) ONE (15:04)
[2017-06-05] MEDS ORDERED: Ketorolac Tromethamine 30 MG/ML VIAL ONE (15:04)
[2017-06-05] MEDS ORDERED: Lidocaine 1% PF 5 ML VIAL ONE (15:04)
[2017-06-05] MEDS ORDERED: Glycopyrrolate 0.2 MG/ML 5 ML SYRINGE ONE (15:04)
[2017-06-05] MEDS ORDERED: PROPOFOL 200 MG/20 ML VIAL ONE (15:04)
[2017-06-05] MEDS ORDERED: Dexamethasone 20 MG/5 ML VIAL ONE (15:04)
[2017-06-05] MEDS ORDERED: Ondansetron HCl/PF 4 MG/2 ML Vial ONE (15:04)
--- NOTE | 2017-06-05 15:23 | RAD ---
CHOLANGIOGRAM IN SURGERY: HISTORY: Cholelithiasis, laparoscopic cholecystectomy. FINDINGS/IMPRESSION: A single spot fluorosocpic image from an intraoperative cholangiogram demonstrates contrast in the cy stic duct remnant, common bile duct, pancreatic duct, common duct, and portions of the hepatic cysts. There is inadequate opacification of the distal aspects of the hepatic ducts. No filling defects a re otherwise seen. POS: [facility]
[2017-06-05] MEDS: Famotidine/PF 20 mg/2ml Vial SLOW IVP SCH (21:37)
[2017-06-05] MEDS: Famotidine 20 MG TAB PO SCH (21:38)
[2017-06-06 04:56] LABS: #Lymphocytes 3.1 thou/uL (1.20-3.40); #Monocytes 0.7 thou/uL (0.11-0.59); #Neutrophils 5.9 thou/uL (1.40-6.50); %Basophils 0.1 % (0.0-1.0); %Eosinophils 0.1 % (0.0-10.0); %Lymphocytes 31.7 % (21.0-51.0); %Monocytes 6.8 % (0.0-10.0); %Neutrophils 61.3 % (42.0-75.0); Hemoglobin 12.1 g/dL (12.0-16.0); Mean Corpuscular HGB CONC 32.4 g/dL (32.0-36.0); Mean Corpuscular Hemoglobin 24.4 pg (27.0-31.0); Mean Corpuscular Volume 75.3 fl (81.0-99.0); Platelet Count 356 thou/uL (130-400); RBC Distribution Width 15.5 % (11.5-14.5); Red Blood Cell (RBC) Count 4.97 mill/uL (4.20-5.40); White Blood Cell (WBC) Count 9.7 thou/uL (4.8-10.8)
[2017-06-06 05:00] LABS: ALT (SGPT) 106 U/L (8-55); AST (SGOT) 57 U/L (5-34); Albumin 3.8 g/dL (3.5-5.0); Alkaline Phosphatase 115 U/L (40-150); Anion Gap 11 mmol/L (10-20); BUN (Urea Nitrogen) 8 mg/dL (7.0-18.7); Bilirubin, Total 0.5 mg/dL (0.2-1.2); Calc. Creatinine Clearance 223 mL/min (70-130); Carbon Dioxide 22 mmol/L (22-29); Chloride 109 mmol/L (98-107); Estimated GFR-MDRD Greater than 90; Globulin 3.4 g/dL (2.4-3.5); Glucose 128 mg/dL (70-105); Lipase 42 U/L (8-78); Potassium 3.8 mmol/L (3.5-5.1); Protein, Total 7.2 g/dL (6.0-8.3); Sodium 138 mmol/L (136-145)
[2017-06-06] MEDS: D5 1/2 NS w/20 mEq KCL 1,000 ML IV SCH ×2 (05:22→12:37)
[2017-06-06] MEDS: Ketorolac Tromethamine 30 MG/ML VIAL IVP SCH ×2 (05:23→12:46)
[2017-06-06] MEDS: Famotidine 20 MG TAB PO SCH (08:35)
[2017-06-06] MEDS: Famotidine/PF 20 mg/2ml Vial SLOW IVP SCH (08:41)
[2017-06-06] MEDS ORDERED: Enoxaparin Sodium 40 MG/0.4 ML SYRINGE SC SCH (09:00)
[2017-06-06] MEDS ORDERED: Acetaminophen 500 MG TAB PO PRN (13:34)
[2017-06-06] MEDS ORDERED: traMADol HCl 50 MG TAB PO PRN ×2 (13:34)
[2017-06-06] MEDS ORDERED: Ibuprofen 600 MG TAB PO PRN (13:34)
--- NOTE | 2017-06-06 14:43 | PRG ---
DATE OF SERVICE: 06/06/2017 SUBJECTIVE: Ms. Frey is doing well. She is tolerating her diet. She has not had any problems. S he is not having nausea or vomiting. OBJECTIVE: VITAL SIGNS: Temperature 97.3, pulse 69, respiratory rate 20, blood pressure 119/79. LUNGS: Clear to auscultation. CARDIAC: Regular rate and rhythm without murmur, rub, or gallop. ABDOMEN: Soft, nontender. LABORATORY DATA: White count 9, hemoglobin 12. Liver function tests are essentially normal, bilirub in 0.5. AST and ALT 57/106 respectively and alkaline phosphatase normal. ASSESSMENT AND PLAN: The patient is doing well. She is being discharged home. She will follow up w ajit Conklin in the next 2-3 weeks. Diet and activity as tolerated. No lifting restrictions. Show er and bathe as needed. She has discharge medications Dr. Conklin has left for her, Lortab 7.5 as need ed and she can take [id number] Tylenol and Motrin as needed.
[2017-06-06 16:25] VITALS: BP 125/80; TEMP 97.5
--- NOTE | 2017-06-09 08:03 | DIS ---
DISCHARGE DIAGNOSIS: Acute cholecystitis. PROCEDURES DURING ADMISSION: Laparoscopic cholecystectomy with intraoperative cholangiogram. HOSPITAL COURSE: The patient was admitted. She had a CT and ultrasound showing gallstones. She had elevated liver functions. She underwent the laparoscopic cholecystectomy with cholangiogram. Chola ngiogram was fine. Postoperatively, she did fine. She is tolerating liquids. She is discharged yaw e on p.o. medications. She will follow up with me in 2 weeks.
== END 2017-06-06 18:40 | disposition home or self-care (01) | DRG 418 ==
LOC: ERS 15:54 → SURG B 19:47
PROVIDERS: ADMIT Surgery; ATTEND Surgery
PROC: 0FT44ZZ Resection of Gallbladder, Percutaneous Endoscopic Approach (ICD-10-PCS; principal; 2017-06-05)
PROC: BF110ZZ Fluoroscopy of Biliary and Pancreatic Ducts using High Osmolar Contrast (ICD-10-PCS; 2017-06-05)
DX: K80.00 Calculus of gallbladder with acute cholecystitis without obstruction (principal); Z68.41 Body mass index [BMI] 40.0-44.9, adult; E66.01 Morbid (severe) obesity due to excess calories; K76.0 Fatty (change of) liver, not elsewhere classified; R76.11 Nonspecific reaction to tuberculin skin test without active tuberculosis
CPT/HCPCS: 36415; 47532; 71045; 76705; 80053; 81003; 81015; 81025; 83690; 85025; 88304; 96360; J0360; J1100; J1885; J1956; J2001; J2405; J2550; J2704; J3010; Q0162; Q9961; S0020; S0028

== ENCOUNTER 2019-06-04 21:50 | Emergency (ER) | payer OTHER ==
[2019-06-04 22:26] LABS: #Basophils 0.1 thou/uL (0.0-0.2); #Eosinphils 0.2 thou/uL (0.0-0.7); #Lymphocytes 2.9 thou/uL (1.20-3.40); #Monocytes 0.3 thou/uL (0.11-0.59); #Neutrophils 4.8 thou/uL (1.40-6.50); %Basophils 0.7 % (0.0-1.0); %Eosinophils 2.2 % (0.0-10.0); %Monocytes 3.9 % (0.0-10.0); %Neutrophils 58.2 % (42.0-75.0); Mean Corpuscular HGB CONC 34.9 g/dL (32.0-36.0); Mean Corpuscular Hemoglobin 30.2 pg (27.0-31.0); Mean Corpuscular Volume 86.6 fL (78.0-98.0); Mean Platelet Volume 7.1 fL (7.4-10.4); Platelet Count 251 thou/uL (130-400); RBC Distribution Width 11.8 % (11.5-14.5); Red Blood Cell (RBC) Count 4.31 mill/uL (4.20-5.40); White Blood Cell (WBC) Count 8.3 thou/uL (4.8-10.8)
[2019-06-04 22:40] LABS: Bacteria/HPF 4+ HPF (None Seen); Bilirubin Negative (Negative); Blood, Urine 1+ (Negative); Clarity Turbid (Clear); Glucose, Urine (Dipstick) Normal (Negative); Leukocyte 500 Leu/uL (Negative); Nitrite Negative (Negative); Protein, Urine (Dipstick) Negative (Neg-Trace); RBC/HPF 0-3 HPF (0-3); Urobilinogen Normal mg/dL (Less than 2)
--- NOTE | 2019-06-04 23:26 | ULT ---
Obstetric sonogram transabdominal imaging HISTORY: Pelvic pain. Early . FINDINGS single intrauterine gestation is present in variable presentation. Amniotic fluid is within normal limits. Heart motion at 155 bpm. Early gestational age limits anatomic detail. The cervix is closed and 5.0 cm length. Measurements are as follows: Biparietal diameter: 14 weeks 0 days Head circumference 14 weeks 0 days Abdominal circumference 14 weeks 0 days Femur length 14 weeks 1 day Estimated date of delivery based on today's sonogram 12/03/2019. IMPRESSION: Single viable intrauterine gestation estimated gestational age 14 weeks 0 days. No eviden ce of complication.
[2019-06-04 23:51] LABS: ALT (SGPT) 20 U/L (8-55); AST (SGOT) 15 U/L (5-34); Albumin 3.8 g/dL (3.5-5.0); Alkaline Phosphatase 78 U/L (40-110); Anion Gap 11 mmol/L (10-20); BUN (Urea Nitrogen) 12 mg/dL (7.0-18.7); Bilirubin, Total 0.3 mg/dL (0.2-1.2); Calc. Creatinine Clearance 0 mL/min (70-130); Calcium 9.7 mg/dL (7.8-10.44); Carbon Dioxide 24 mmol/L (22-29); Chloride 105 mmol/L (98-107); Estimated GFR-MDRD Greater than 90; Globulin 3.1 g/dL (2.4-3.5); Glucose 131 mg/dL (70-105); Lipase 40 U/L (8-78); Potassium 3.1 mmol/L (3.5-5.1); Protein, Total 6.9 g/dL (6.0-8.3); Sodium 137 mmol/L (136-145)
[2019-06-05] MEDS ORDERED: Lidocaine 1% PF 5 ML VIAL ONE (00:44)
[2019-06-05] MEDS ORDERED: cefTRIAXone\\ROCEPHIN 1 GM VIAL ONE (00:44)
[2019-06-05] MEDS ORDERED: Potassium Chloride 20 MEQ TAB ONE (00:44)
== END 2019-06-05 02:00 | disposition home or self-care (01) ==
LOC: ERS 21:50
DX: O23.42 Unspecified infection of urinary tract in pregnancy, second trimester (principal); O99.89 Other specified diseases and conditions complicating pregnancy, childbirth and the puerperium; M54.6 Pain in thoracic spine; Z79.84 Long term (current) use of oral hypoglycemic drugs; Z3A.16 16 weeks gestation of pregnancy
CPT/HCPCS: 36415; 76856; 80053; 81003; 81015; 83690; 84702; 85025; 86900; 86901; 87086; 96372; J0696; J2001

== ENCOUNTER 2019-12-06 11:39 | Inpatient (IN) | payer MEDICAID, OTHER, SELFPAY ==
[~2019-12-06 11:39] MED LIST: Acetaminophen 500 MG TAB PO PRN; Butorphanol Tartrate 1 MG/ML VIAL SLOW IVP PRN; Docusate 100 MG CAP PO PRN; Ondansetron PF 4 MG/2 ML Vial IVP PRN; Promethazine HCl 25 MG/ML VIAL IM PRN; hydrALAZINE 20 MG/ML VIAL SLOW IVP PRN
[2019-12-06] MEDS ORDERED: Bicitra 30 ML UDCUP PO SCH (11:45)
[2019-12-06] MEDS ORDERED: CEFAZOLIN 2 GM in Premix Bag 1 BAG IVPB SCH (12:00)
--- NOTE | 2019-12-06 12:08 | PDOC.FPRHP ---
- History of Present Illness Chief Complaint: Repeat LTCS History of Present Illness: 34yo @38.5 wks who presents for rLTCS. She ate at 10am this morning. No other concerns at this time. - Allergies/Adverse Reactions Allergies Allergy/AdvReac Type Severity Reaction Status Date / Time Penicillins Allergy Severe Hives Verified 02/12/17 11:41 - Home Medications Medication Instructions Recorded Confirmed Type traMADol HCl [Tramadol HCl] 1 - 2 tablet PO Q4H PRN 06/05/17 06/05/17 History Acetaminophen [Tylenol Extra 1,000 mg PO Q6H PRN tab 06/06/17 Rx Strength] HYDROcodone Bit/APAP 7.5/325 1 - 2 tab PO Q4HR PRN 06/06/17 06/06/17 History [Stur[place]] Ibuprofen [Motrin] 600 mg PO Q6H PRN tab 06/06/17 Rx Ondansetron [Zofran ODT] 1 tab Q4HR PRN 06/06/17 06/06/17 History - History PMHx: PSHx: FHx: Social: - Vital signs BP: [] HR: [] RR: [] Tmax: [] Pox: []% on [] Wt: [] FMR H&P: Upper Level - Plan Date/Time: 12/06/19 1204 I, [], have evaluated this patient and agree with findings/plan as outlined by internal audit senior manager resident. Pertinent changes/additions are listed here.
--- NOTE | 2019-12-06 12:10 | PDOC.FPROB ---
FMR OB H&P: HPI - History of Present Illness Chief Complaint: rLTCS Indentification: 34yo History of Present Illness: Presents for repeat LTCS Primary Care Physician: KIM Trevino FMR OB H&P: Current - Care : 3 Para: 1999 Gestational age: 38.5 Due date: 12/15/2019 Course/Complications: BMI 42 Pregestational DM TB positive in 2017 GBS Bacteruria Alcohol in 1T - OB Labs Blood type: O RH: positive Antibody Screen: negative HIV: negative RPR: negative HepBsAg: negative Rubella: immune Quad screen: negative Gonorrhea: negative Chlamydia: negative Pap Smear: ASCUS, HPV negative A1c: 4.9 GBS: negative (GBS Bacteuria) - Anatomy Survey Anatomy survey: 75% @ 35.6wks FMR OB H&P: History - Past Medical History PMH: Type II Diabetes Latent TB - OB History OB History: 1 pLTCS for NRFHT, arrest of labor @ 9cm, and macrosomia - VENEER CUTTER History VENEER CUTTER History: No history of STIs. - Surgical History Sx History: Cholecystectomy Hernia repair Prior - Social History Social History: Alcohol use in 1T. Denies current alcohol, tobacco, or drug use. - Family History Family History: Family history of ovarian cancer. FMR OB H&P: Medications - Current Home Medications: Medication Instructions Recorded Confirmed Type Aspirin [Adult Low Dose Aspirin EC] 81 mg PO DAILY 12/06/19 12/06/19 History Vitamin 1 tablet PO DAILY 12/06/19 12/06/19 History metFORMIN [Glucophage] 500 mg PO QA- 12/06/19 12/06/19 History Allergies/Adverse Reactions: Allergies Allergy/AdvReac Type Severity Reaction Status Date / Time Penicillins Allergy Severe Hives Verified 02/12/17 11:41 FMR OB H&P: ROS - Review of Systems General: denies: fever/chills, weight/appetite/sleep changes Eyes: denies: eye pain, vision changes ENT: denies: nasal congestion, rhinorrhea Cardiovascular: denies: chest pain, palpitation Respiratory: denies: cough, congestion Gastrointestinal: denies: abdominal pain, indigestion, bloating, cramping, nausea, vomiting, constipation Genitourinary (Female): denies: incontinence, dysuria, vaginal pain, vaginal bleeding, vaginal mass/sore, contractions, vaginal pressure Musculoskeletal: denies: pain, stiffness Neurologic: denies: numbness, syncope Integumentary: denies: itching, rash, lesions FMR OB H&P: Physical Exam - Physical Exam General: NAD, awake, alert and oriented HEENT: normocephalic and atraumatic, PERRLA, EOMI, MMM, conjunctiva clear, grossly normal vision, grossly normal hearing Neck: supple, FROM Chest: non-tender to palpation Breast: symmetric, non-tender Heart: RRR, normal S1/S2 General: CTAB, no respiratory distress, good air movement, no rales/rhonchi, no wheezing Abdomen: soft, gravid, non-tender Musculoskeletal: normal gait and station, pulses present Neurological: cranial nerves II through XII intact Skin: no rash, good tugor Lymphatic: no unusual bruising or bleeding Psychiatric: intact recent and remote memory, good judgement and insight FMR OB H&P: A/P - Problem List (1) Latent tuberculosis Current Visit: Yes Status: Acute (2) Diabetes type 2, controlled Current Visit: No Status: Acute Code(s): E11.9 - TYPE 2 DIABETES MELLITUS WITHOUT COMPLICATIONS Qualifiers: Diabetes mellitus longterm insulin use: without longterm use Diabetes mellitus complication status: with kidney complications Diabetes mellitus complication detail: with nephropathy Qualified Code(s): E11.21 - Type 2 diabetes mellitus with diabetic nephropathy Comment: WOO whalen (3) GBS carrier Current Visit: No Status: Acute Code(s): Z22.330 - CARRIER OF GROUP B STREPTOCOCCUS Comment: Treated with Vanc during delivery due to PCN allergy. (4) Current Visit: No Status: Acute Qualifiers: Weeks of gestation: 39 weeks Qualified Code(s): Z3A.39 - 39 weeks gestation of Disposition: Term intrauterine , scheduled rLTCS - Patient counseled on risks/benefits of TOLAC and elected to undergo rLTCS. - Planned for today at noon, however patient ate around 10am. Pregestational type II diabetes - well controlled on Metformin Latent TB - positive in 2017, quant gold positive. Obtaining CXR for evaluation. GBS Bacteruria - Does not need PPX unless ruptured. Obesity Plan to admit to L&D for later in the day. Kevin MASSEY PGY2 Discussion: Date/Time: 12/06/19 7251 This H&P was discussed with [] and [] who agree with the above documentation and plan.
[2019-12-06] MEDS: Lactated Ringer's 1,000 ML IV SCH ×2 (12:30→15:52)
[2019-12-06 12:32] VITALS: BMI 37.0
--- NOTE | 2019-12-06 12:43 | RAD ---
Exam: Chest one view HISTORY:Late tuberculosis Comparison: 06/04/2017 FINDINGS: Cardiac silhouette: Normal Aorta: Unremarkable Pulmonary vessels: Normal Costophrenic angles: Clear LUNGS: No masses or consolidation. Hypoventilation, likely due to poor inspiratory effort. Pneumothorax: None Osseous abnormalities: None IMPRESSION: No acute cardiopulmonary process.
[2019-12-06 13:39] LABS: Hemoglobin 13.2 g/dL (12.0-16.0); Mean Corpuscular HGB CONC 35.4 g/dL (32.0-36.0); Mean Corpuscular Hemoglobin 30.9 pg (27.0-31.0); Mean Corpuscular Volume 87.3 fL (78.0-98.0); Mean Platelet Volume 7.7 fL (7.4-10.4); Platelet Count 206 thou/uL (130-400); Red Blood Cell (RBC) Count 4.28 mill/uL (4.20-5.40); White Blood Cell (WBC) Count 7.3 thou/uL (4.8-10.8)
[2019-12-06 14:13] LABS: Syphilis Antibody Nonreactive (Nonreactive); Syphilis Antibody Index 0.07 S/CO (<1.00 Non-Reactive)
[2019-12-06 15:43] LABS: HBSAg Index 0.19 S/CO (0-0.99); Hep B Surf Ag Non-Reactive S/CO (NonReactive)
[2019-12-06] MEDS ORDERED: MORPHINE 5 MG/10 ML PF VIAL ONE (15:59)
[2019-12-06] MEDS ORDERED: Oxytocin 10 UNITS/ML VIAL ONE ×2 (16:00→17:49)
[2019-12-06] MEDS ORDERED: Ketorolac Tromethamine 30 MG/ML VIAL ONE (16:00)
[2019-12-06] MEDS ORDERED: Ondansetron PF 4 MG/2 ML Vial ONE (16:00)
[2019-12-06] MEDS ORDERED: EPHEDRINE 25 MG/5 ML SYRINGE ONE (16:00)
[2019-12-06] MEDS ORDERED: PHENYLEPHRINE-NS 100 MCG/ML 10 ML SYRINGE ONE (16:00)
[2019-12-06] MEDS ORDERED: Ondansetron PF 4 MG/2 ML Vial IVP PRN ×2 (16:23→21:23)
[2019-12-06] MEDS ORDERED: Ondansetron HCl/PF 4 MG/2 ML Vial IVP PRN (16:23)
[2019-12-06] MEDS ORDERED: Promethazine HCl 25 MG/ML VIAL IM PRN (16:23)
[2019-12-06] MEDS ORDERED: L&D-Morphine 4 MG/ML VIAL SLOW IVP PRN (16:23)
[2019-12-06] MEDS ORDERED: Naloxone HCl 0.4 mg/ml Vial IVP PRN ×2 (16:23)
[2019-12-06] MEDS ORDERED: diphenhydrAMINE 50 MG/ML VIAL IVP PRN (16:23)
[2019-12-06] MEDS ORDERED: HYDROmorphone 2 MG/ML VIAL SLOW IVP PRN (16:23)
[2019-12-06] MEDS ORDERED: Meperidine HCl/PF 25 MG/ML VIAL SLOW IVP PRN (16:23)
[2019-12-06] MEDS ORDERED: Naloxone HCl 0.4 mg/ml Vial IV PRN (16:23)
[2019-12-06] MEDS ORDERED: Promethazine HCl 25 MG SUPP PR PRN (16:23)
[2019-12-06] MEDS ORDERED: Ketorolac Tromethamine 30 MG/ML VIAL IVP PRN (16:23)
[2019-12-06] MEDS ORDERED: Ketorolac Tromethamine 30 MG/ML VIAL IVP SCH (16:30)
[2019-12-06] MEDS ORDERED: Communication Order-Pharmacy FS SCH (16:30)
[2019-12-06] MEDS ORDERED: Methylergonovine 0.2 MG/ML VIAL ONE (17:34)
[2019-12-06 17:47] LABS: Actual Bicarbonate (HCO3a) 23.6 mEq/L (22-28); Base Excess (BEa) -3.2 mEq/L (-2.0 to +3.0)
[2019-12-06] MEDS ORDERED: Fentanyl 100 MCG/2 ML VIAL ONE (18:30)
--- NOTE | 2019-12-06 19:05 | PDOC.OPDEL ---
OB Operative/Delivery Note Delivery Dr/Surgeon: Uriel / hAsan / Umu - Additional Findings/Plan Compilations/Other Findings: Procedure Note Date of Procedure: 12/06/2019 Resident Surgeon: Dr. Trevino Stone Sawyer Surgeon: Dr. Umu Osorio Attending Surgeon: Dr. Anton Procedure: Repeat low transverse caesarean section with risk reducing salpingectomy Preoperative Diagnosis: 1)Term intrauterine 2)Previous 3)pregestational diabetes 4)latent tuberculosis Postoperative Diagnosis: 1)same as above 4)uterine atony Anesthesia: spinal Indications: repeat low transverse . The patient is a 34 year old female at 38.5 weeks gestation who presents for a repeat scheduled . Procedure in Detail: After risks, benefits, and alternatives were explained to the patient, she gave informed consent. Pre-operative antibiotics included Cefazolin 2 gram IV. The patient was taken to the operating room and spinal anesthesia was initiated. She was placed in the supine position with a left tilt and prepped and draped in usual sterile fashion. A Pfannenstiel incision was made with a scalpel and carried down to the level of the fascia which was sharply nicked. The fascial cut was extended bilaterally with Rojas sissors. The inferior and superior edges of the cut fascial edges were elevated with Marv clamps and the underlying rectus muscles were sharply and bluntly dissected free. The recti were divided digitally and retracted manually. It appeared that the omentum was adhered to the lower uterine segment. At this point in time Dr. Hernandez, [facility] laborist, was called in for assistance. After inspection, it was found that it was a large amount of omental and peritoneal fat. Then the Parth-O retractor was inserted. The peritoneum was entered bluntly and retracted manually. A low transverse score was made with the scalpel and the uterus was entered in the midline with the scalpel. Clear fluid was seen. The hysterotomy was extended manually. The was noted to be occiput posterior and was manually delivered by fundal pressure. Mouth and nares were bulb suctioned. Cord clamped and cut and grossly normal male infant was handed to waiting nurse. Cord blood was obtained. Cord sample was collected for gas. Placenta was manually extracted, found to be intact with 3 vessel cord and discarded. The hysterotomy was closed with #1 Vicryl locking sutures. Following this hemostasis was noted. The fallopian tubes were then removed by Dr. Hernandez. See his operative note for separate procedure. The abdomen was irrigated with saline and suctioned free of clots. The hysterotomy was inspected again noted to be hemostatic. The fascia was closed with a running non -locking 0-PDS suture. The subcutaneous tissue was irrigated and small bleeders were cauterized, then closed with 2-0 chromic and 2-0 plain gut suture. The skin was approximated with betsey with a divine drain and pressure dressing was placed. All counts were correct. The patient tolerated the procedure well and was taken to the recovery room in stable condition. QBL: 1720 ml Complications: Uterine atony, PPH. Specimens: Cord blood sent to lab for blood type. Placenta sent for pathology. Findings: Grossly normal male with apgars of 1 and 9, required 30 seconds of PPV and 30 seconds of CPAP. Grossly normal placenta with 3 vessel cord discarded. Drains: Damon to gravity draining clear urine. [place] wound drain.
[2019-12-06] MEDS ORDERED: Morphine 4 MG/ML VIAL SLOW IVP PRN (20:00)
[2019-12-06] MEDS ORDERED: Morphine 4 MG/ML VIAL ONE (20:02)
[2019-12-06] MEDS ORDERED: hydrALAZINE 20 MG/ML VIAL SLOW IVP PRN (21:23)
[2019-12-06] MEDS ORDERED: Misoprostol 200 MCG TAB PR PRN (21:23)
[2019-12-06] MEDS ORDERED: NS / Oxytocin 40 units/1000ml 1,000 ML IV SCH (21:23)
[2019-12-06] MEDS ORDERED: HYDROcodone/Acetaminophen 5/325 mg Tablet PO PRN (21:23)
[2019-12-06] MEDS ORDERED: Bisacodyl 10 MG SUPP PR PRN (21:23)
[2019-12-06] MEDS ORDERED: Lanolin Ointment 7 GM TUBE TOP PRN (21:23)
[2019-12-06] MEDS ORDERED: diphenhydrAMINE 25 MG CAP PO PRN (21:23)
[2019-12-06] MEDS ORDERED: Acetaminophen 325 MG TAB PO PRN (21:23)
[2019-12-06] MEDS ORDERED: Methylergonovine 0.2 MG/ML VIAL IM PRN (21:23)
--- NOTE | 2019-12-06 22:08 | PDOC.BPN ---
- Brief Progress Note 34 year old G3 now P3 female who delivered via rLTCS at 38.5 weeks gestation, now 4 hours post op. QBL 1720mL. Resting comfortably, states pain is controlled. Denies CP, palpitations, SOB, N/V, dizziness. VS: 117/58, HR 70, RR 18, T 97.6F PE: CV- RRR, no murmurs, Lungs- CTAB, Abdomen- appropriately tender, Damon in place, urine clear. A/P: #s/p rLTCS -continue routine post care -QBL 1720: if symptomatic, will order H/H #Hx of pregestational DM -blood glucose checks Siria Rossi, PGY1
[2019-12-06] MEDS: Ferrous Sulfate 325 MG TAB PO SCH (22:50)
[2019-12-06] MEDS: Docusate Calcium (SURFAK) 240 MG CAP PO SCH (22:57)
--- NOTE | 2019-12-07 01:41 | OP ---
DATE OF PROCEDURE: 12/06/2019 PRIMARY SURGEON: Dr. Chuck Anton. Patient is a 34-year-old female scheduled for repeat with bilateral tubal excision for risk reducing purposes performed by the primary team, Dr. Anton and his associates. I was asked to come to the room shortly after beginning the procedure for evaluation of the intraabdominal cavity with concerns of a uterine window and adherent omentum. After being scrubbed in, patient was noted to have a hysterotomy with the fascial incision and extension and elevation of the rectus fascia off the underlying rectus muscles with exposure of what they were concerned was omentum. After being properly scrubbed and draped and gowned, I approached the surgical field and on closer inspection, the fat overlying the uterus appeared to be preperitoneal fat. With careful blunt dissection, we were able to identify the peritoneal cavity and extends the defect to accommodate . The bladder was noted to be adhesed fairly high on the lower uterine segment. Bladder flap was created and was bluntly dissected down revealing more of the uterus for more easy closure. At this point in time, I stepped out of the way and the primary team took over care. I remained scrubbed as there was bilateral salpingectomy was scheduled with the same procedure. However, upon hysterotomy, there was some difficulty in removing the child and I again became active in the surgical field. I elevated the head to the hysterotomy which then was delivered with the assistance of vacuum extraction by Dr. Anton, the primary surgeon. The was bulb suctioned. The cord was clamped and cut and the infant was handed off to the waiting attendants. The placenta delivered spontaneously and again I stepped out of the field for the team to close the hysterotomy. There was a significant amount of bleeding noted and difficulty identifying the various surgical margins. I again presented myself to the surgical field and assisted in closure of the hysterotomy. For complete details, please refer to Dr. Anton's operative note. Once the hysterotomy was closed and good hemostasis was noted, attention was placed on the left and right tube. Just prior to closure of the hysterotomy, an Parth O retractor was inserted for better exposure. With retraction at the level of the round ligament, the left tube was brought into view and was completely excised from the mesosalpinx through a series of defects placed in the mesosalpinx with the Bovie and the vessels individually tied with 2-0 chromic for hemostasis. The tube was then excised with Metzenbaum scissors to the isthmic portion. The procedure was then repeated on the opposite tube. Good hemostasis was noted. After reinspection of both of the medial salpinx and ligated pedicles. With good hemostasis and completion of this salpingectomy , I again stepped out of the field and returned the case back to the primary team. At this point, please refer to the operative note for complete details of closure beyond this point. With things being stable, excused myself from the surgical field to attend other duties. Job ID: [id number] [facility]
[2019-12-07 06:17] LABS: Hemoglobin 10.7 g/dL (12.0-16.0); Mean Corpuscular HGB CONC 34.1 g/dL (32.0-36.0); Mean Platelet Volume 7.5 fL (7.4-10.4); Platelet Count 180 thou/uL (130-400); RBC Distribution Width 12.9 % (11.5-14.5); Red Blood Cell (RBC) Count 3.57 mill/uL (4.20-5.40)
--- NOTE | 2019-12-07 07:10 | PDOC.PP ---
Post Progress Note Post Day #: 1 Subjective: Doing well this morning. james is still in, she has not walked yet. Denies dizziness, weakness. She denies pain at this time. PO intake tolerated: yes Flatus: no Ambulation: no Vital Signs (12 hours) Temp Pulse Resp BP 12/07/19 04:00 97.6 F 72 16 118/59 L 12/06/19 23:30 97.3 F L 72 18 126/60 12/06/19 22:30 97.9 F 77 18 120/66 12/06/19 21:30 97.6 F 70 18 117/58 L Weight Weight 101.151 kg - Physical Examination General: NAD Cardiovascular: no m/r/g, RRR Respiratory: clear to auscultation bilaterally Abdominal: + bowel sounds, lochia, no distention, appropriately TTP Skin: CS incision dry & intact (Under pressure dressing.) Neurological: no gross focal deficits Psychiatric: A&Ox3, normal affect Result Diagrams: 12/07/19 06:04 Additional Labs: Post Labs Blood Type O POSITIVE 12/06/19 12:54 Hep Bs Antigen Non-Reactive S/CO (NonReactive) 12/06/19 12:54 (1) Latent tuberculosis Status: Acute (2) Diabetes type 2, controlled Code(s): E11.9 - TYPE 2 DIABETES MELLITUS WITHOUT COMPLICATIONS Status: Acute Qualifiers: Diabetes mellitus detention insulin use: without terminal carman use Diabetes mellitus complication status: with kidney complications Diabetes mellitus complication detail: with nephropathy Qualified Code(s): E11.21 - Type 2 diabetes mellitus with diabetic nephropathy Comment: WOO sanchez wnl (3) GBS carrier Code(s): Z22.330 - CARRIER OF GROUP B STREPTOCOCCUS Status: Acute Comment: Treated with Vanc during delivery due to PCN allergy. (4) Status: Acute Qualifiers: Weeks of gestation: 39 weeks Qualified Code(s): Z3A.39 - 39 weeks gestation of - Assessment/Plan PPD 1 s/p rLTCS w/ bilateral risk reducing salpingectomy - Routine post care - Hb 10.7 this morning. Will monitor bleeding. - breast and bottle feeding. - [place] drain in place, betsey over incision. Plan to remove before dc depending on appearance of wound. PPH - QBL 1720 + 46 - s/p methergine. - Will monitor closely. PreGestational DM - On Metformin, will restart. - Accuchecks ACHS. - A1c 7.7% at beginning of > 4.9% most recently. Latent TB - CXR negative 12/05. Kevin MASSEY PGY2
[2019-12-07] MEDS: HYDROcodone/Acetaminophen 5/325 mg Tablet PO PRN ×3 (08:44→16:57)
[2019-12-07] MEDS: Simethicone Chewable 80 MG TAB PO PRN (08:44)
[2019-12-07] MEDS: Docusate Calcium (SURFAK) 240 MG CAP PO SCH ×2 (08:44→20:43)
[2019-12-07] MEDS: Prenatal Vitamin 1 TAB PO SCH (08:44)
[2019-12-07] MEDS ORDERED: Adacel (T-DAP) 0.5 ML SYRINGE IM ONE (09:00)
[2019-12-07] MEDS ORDERED: metFORMIN 500 MG TAB PO SCH ×2 (09:00→18:00)
[2019-12-07] MEDS: Ferrous Sulfate 325 MG TAB PO SCH ×2 (09:55→20:42)
[2019-12-07] MEDS: Ibuprofen 800 MG TAB PO SCH ×2 (13:29→20:43)
[2019-12-08] MEDS: HYDROcodone/Acetaminophen 5/325 mg Tablet PO PRN ×3 (03:46→19:33)
[2019-12-08] MEDS: Ibuprofen 800 MG TAB PO SCH ×3 (05:35→21:24)
--- NOTE | 2019-12-08 07:49 | PDOC.PP ---
Post Progress Note Post Day #: 2 Subjective: Patient is doing well this morning. She states she had pain overnight, but the medication helped. She states that yesterday while walking she got dizzy a couple of times. PO intake tolerated: yes Flatus: yes Ambulation: yes Vital Signs (12 hours) Temp Pulse Resp BP Pulse Ox 12/08/19 04:00 98.1 F 64 18 105/57 L 12/08/19 00:00 97.9 F 66 16 108/55 L 12/07/19 20:00 98.7 F 77 18 121/74 100 Weight Weight 101.151 kg - Physical Examination General: NAD Cardiovascular: no m/r/g, RRR Respiratory: clear to auscultation bilaterally, non-labored breathing Abdominal: + bowel sounds, lochia, no distention, appropriately TTP Skin: CS incision dry & intact Neurological: no gross focal deficits Psychiatric: A&Ox3, normal affect Result Diagrams: 12/07/19 06:04 Additional Labs: Post Labs Blood Type O POSITIVE 12/06/19 12:54 Hep Bs Antigen Non-Reactive S/CO (NonReactive) 12/06/19 12:54 (1) Latent tuberculosis Status: Acute (2) Diabetes type 2, controlled Code(s): E11.9 - TYPE 2 DIABETES MELLITUS WITHOUT COMPLICATIONS Status: Acute Qualifiers: Diabetes mellitus intermediate insulin use: without intermediate use Diabetes mellitus complication status: with kidney complications Diabetes mellitus complication detail: with nephropathy Qualified Code(s): E11.21 - Type 2 diabetes mellitus with diabetic nephropathy Comment: WOO accuchecks wnl (3) GBS carrier Code(s): Z22.330 - CARRIER OF GROUP B STREPTOCOCCUS Status: Acute Comment: Treated with Vanc during delivery due to PCN allergy. (4) Status: Acute Qualifiers: Weeks of gestation: 39 weeks Qualified Code(s): Z3A.39 - 39 weeks gestation of - Assessment/Plan PPD 2 s/p rLTCS w/ bilateral risk reducing salpingectomy - Routine post care - breast and bottle feeding. - [place] drain in place, betsey over incision. Plan to remove before dc depending on appearance of wound. - She would like to stay one more night as she recovers. PPH - QBL 1720 + 46 + 15 - s/p methergine. - Will monitor closely. PreGestational DM - On Metformin, will restart. - Accuchecks ACHS. - A1c 7.7% at beginning of > 4.9% most recently. Latent TB - CXR negative 12/05. Kevin MASSEY PGY2
[2019-12-08] MEDS ORDERED: metFORMIN 500 MG TAB PO SCH (08:00)
[2019-12-08] MEDS: Prenatal Vitamin 1 TAB PO SCH (08:16)
[2019-12-08] MEDS: Docusate Calcium (SURFAK) 240 MG CAP PO SCH ×2 (08:16→19:32)
[2019-12-08] MEDS: metFORMIN 500 MG TAB PO SCH (08:18)
[2019-12-08 11:06] LABS: Hemoglobin 9.2 g/dL (12.0-16.0)
[2019-12-08] MEDS: Ferrous Sulfate 325 MG TAB PO SCH ×2 (13:30→19:32)
[2019-12-08] MEDS: Simethicone Chewable 80 MG TAB PO PRN (19:32)
[2019-12-09] MEDS: Ibuprofen 800 MG TAB PO SCH (05:36)
--- NOTE | 2019-12-09 08:00 | PDOC.PP ---
Post Progress Note Post Day #: 3 Subjective: Doing well. Pain much improved from yesterday. Walked more yesterday without dizziness. PO intake tolerated: yes Flatus: yes Ambulation: yes Weight Weight 101.151 kg - Physical Examination General: NAD Cardiovascular: no m/r/g, RRR Respiratory: clear to auscultation bilaterally, non-labored breathing Abdominal: + bowel sounds Skin: CS incision dry & intact, no rash Neurological: no gross focal deficits Psychiatric: A&Ox3, normal affect Result Diagrams: 12/08/19 10:32 Additional Labs: Post Labs Blood Type O POSITIVE 12/06/19 12:54 Hep Bs Antigen Non-Reactive S/CO (NonReactive) 12/06/19 12:54 (1) Latent tuberculosis Status: Acute (2) Diabetes type 2, controlled Code(s): E11.9 - TYPE 2 DIABETES MELLITUS WITHOUT COMPLICATIONS Status: Acute Qualifiers: Diabetes mellitus continuous churn buttermaker insulin use: without continuous churn buttermaker use Diabetes mellitus complication status: with kidney complications Diabetes mellitus complication detail: with nephropathy Qualified Code(s): E11.21 - Type 2 diabetes mellitus with diabetic nephropathy Comment: WOO accucheckkathleen wnl (3) GBS carrier Code(s): Z22.330 - CARRIER OF GROUP B STREPTOCOCCUS Status: Acute Comment: Treated with Vanc during delivery due to PCN allergy. (4) Status: Acute Qualifiers: Weeks of gestation: 39 weeks Qualified Code(s): Z3A.39 - 39 weeks gestation of - Assessment/Plan PPD 2 s/p rLTCS w/ bilateral risk reducing salpingectomy - Routine post care - breast and bottle feeding. - Will remove betsey this morning and plan for d/c. - She has required Saltese overnight for pain control, will send home with rx for Saltese and Ibuprofen. - Recommend close follow up at [facility] next week for incision check. PPH - QBL 1720 + 46 + 15 - s/p methergine. - Will monitor closely. - Hb stable. PreGestational DM - On Metformin, will restart. - Accuchecks ACHS. - A1c 7.7% at beginning of > 4.9% most recently. Latent TB - CXR negative 12/05. - Recommend f/u with Dr. Mccracken outpatient. Kevin MASSEY PGY2
[2019-12-09 08:39] VITALS: BP 119/55; TEMP 98.8
[2019-12-09] MEDS: Docusate Calcium (SURFAK) 240 MG CAP PO SCH (08:43)
[2019-12-09] MEDS: Prenatal Vitamin 1 TAB PO SCH (08:43)
[2019-12-09] MEDS: metFORMIN 500 MG TAB PO SCH (08:43)
[2019-12-09] MEDS: HYDROcodone/Acetaminophen 5/325 mg Tablet PO PRN (08:43)
[2019-12-09] MEDS: Ferrous Sulfate 325 MG TAB PO SCH (08:43)
== END 2019-12-09 12:35 | disposition home or self-care (01) | DRG 784 ==
LOC: L&D 11:39 → 3SW 21:58
PROVIDERS: ADMIT Family Medicine; ATTEND Family Medicine
PROC: 10D00Z1 Extraction of Products of Conception, Low, Open Approach (ICD-10-PCS; principal; 2019-12-06)
PROC: 0UB70ZZ Excision of Bilateral Fallopian Tubes, Open Approach (ICD-10-PCS; 2019-12-06)
PROC: 3E033GC Introduction of Other Therapeutic Substance into Peripheral Vein, Percutaneous Approach (ICD-10-PCS; 2019-12-06)
DX: O34.211 Maternal care for low transverse scar from previous cesarean delivery (principal); O72.1 Other immediate postpartum hemorrhage; Z37.0 Single live birth; Z3A.38 38 weeks gestation of pregnancy; O24.429 Gestational diabetes mellitus in childbirth, unspecified control; O99.214 Obesity complicating childbirth; E66.9 Obesity, unspecified; Z90.49 Acquired absence of other specified parts of digestive tract; Z22.7 Latent tuberculosis
CPT/HCPCS: 36415; 36416; 51702; 71045; 82805; 85014; 85018; 85027; 86780; 86850; 86900; 86901; 87340; 88302; 88307; J0690; J1885; J2210; J2270; J2274; J2405; J2590; J3010; Q0163